=== PATIENT | male | born 1960 | race Two or more races ===

== ENCOUNTER 2017-01-16 02:09 | Emergency (ER) | payer MEDICARE, MEDICAID ==
[~2017-01-16] VITALS: Ht 185.4 cm; Wt 226.8 kg
[2017-01-16 03:01] LABS: Basophils # (auto) 0.1 uL; Basophils % (auto) 1.2 % (0.0-2.0); CONDITION Y; Eosinophils # (auto) 0.3 uL; Eosinophils % (auto) 3.9 % (0.0-7.0); Hematocrit 37.2 % (41.0-53.0); Hemoglobin 12.7 g/dL (13.5-17.5); Lymphocytes # (auto) 1.5 uL; Lymphocytes % (auto) 18.5 % (10.0-50.0); Mean Corpuscular Hemoglobin 30.6 pg (28.0-32.0); Mean Corpuscular Hgb Conc. 34.1 g/dL (32.0-36.0); Mean Corpuscular Volume 89.7 fL (80.0-100.0); Mean Platelet Volume 9.6 fL (7.4-10.4); Monocytes # (auto) 0.9 uL; Monocytes % (auto) 11.7 % (0.0-12.0); Neutrophils # (auto) 5.1 uL; Neutrophils % (auto) 64.7 % (37.0-80.0); Platelet Count (auto) 247 10^3/uL (140-450); Red Cell Distribution Width 14.9 % (11.6-16.0); White Blood Cell 7.9 10^3/uL (4.4-10.8)
[2017-01-16 03:17] LABS: Albumin 2.9 g/dL (3.4-5.0); Anion Gap 9 (5-15); Blood Urea Nitrogen 30 mg/dL (7-18); Carbon Dioxide 21 mmol/L (21-32); Chloride 114 mmol/L (98-107); Glucose 115 mg/dL (74-106); Magnesium 2.1 mg/dL (1.6-2.6); Sodium 144 mmol/L (136-145)
[2017-01-16 03:18] LABS: INR 0.95 (0.9-1.15); Partial Thromboplastin Time 25.2 sec (22.64-33.71); Prothrombin Time 10.3 sec (9.37-12.3)
[2017-01-16 03:19] LABS: Aspartate Aminotransferase 42 U/L (15-37); BUN/Creatinine Ratio 18.3; GFR African American 56 mL/min; GFR Non-African American 46 mL/min
[2017-01-16 03:24] LABS: Alkaline Phosphatase 71 U/L (45-117); B-Type Natriuretic Peptide 114.45 pg/mL (0-100); Bilirubin, Total 0.3 mg/dL (0.2-1.0); Total Protein 6.4 g/dL (6.4-8.2)
[2017-01-16 03:25] LABS: Temperature: 23.3 C (20.0-25.0)
[2017-01-16 07:41] VITALS: BP 168/74
[2017-01-16] MEDS ORDERED: INSUINJ7 SC (07:52)
[2017-01-16] MEDS ORDERED: COLC1CAP (07:52)
[2017-01-16] MEDS ORDERED: SITA100T7 (07:52)
[2017-01-16] MEDS ORDERED: CLOP75TA41 (07:52)
[2017-01-16] MEDS ORDERED: TRAM50TA2 (07:52)
[2017-01-16] MEDS ORDERED: MET25T PO (07:52)
[2017-01-16] MEDS ORDERED: SERT-274 (07:52)
[2017-01-16] MEDS ORDERED: RANI-226 (07:52)
[2017-01-16] MEDS ORDERED: INSLANTI SC (07:52)
[2017-01-16] MEDS ORDERED: SIMV-8 (07:52)
[2017-01-16] MEDS ORDERED: AMLO10TA2 (07:52)
[2017-01-16] MEDS ORDERED: FENO160T8 (07:52)
[2017-01-16] MEDS ORDERED: ASPI81TA10 (07:52)
== END 2017-01-16 13:06 | disposition home or self-care (01) ==
LOC: EDBD 02:09 → ER 02:13
DX: I51.7 Cardiomegaly (principal); E66.01 Morbid (severe) obesity due to excess calories; E46 Unspecified protein-calorie malnutrition; I12.9 Hypertensive chronic kidney disease with stage 1 through stage 4 chronic kidney disease, or unspecified chronic kidney disease; E11.22 Type 2 diabetes mellitus with diabetic chronic kidney disease; N18.3 Chronic kidney disease, stage 3 (moderate); Z68.44 Body mass index [BMI] 60.0-69.9, adult; Z79.899 Other long term (current) drug therapy
CPT/HCPCS: 36415; 71010; 80053; 83735; 83880; 84484; 85025; 85610; 85730; 93005; 93970

== ENCOUNTER 2017-09-19 13:30 | Emergency (ER) | payer OTHER, MEDICAID ==
[~2017-09-19] VITALS: Ht 182.9 cm; Wt 201.8 kg
[~2017-09-19 13:30] MED LIST: AMLO10TA2; ASPI81TA10; CLOP75TA41; COLC1CAP; FENO160T8; INSLANTI SC; INSUINJ7 SC; MET25T PO; RANI-226; SERT-274; SIMV-8; SITA100T7; TRAM50TA2
[2017-09-19 14:10] LABS: Basophils # (auto) 0.1 uL; Basophils % (auto) 1.5 % (0.0-2.0); Eosinophils # (auto) 0.2 uL; Eosinophils % (auto) 3.6 % (0.0-7.0); Hematocrit 37.4 % (41.0-53.0); Hemoglobin 12.6 g/dL (13.5-17.5); Lymphocytes # (auto) 1.5 uL; Lymphocytes % (auto) 23.9 % (10.0-50.0); Mean Corpuscular Hgb Conc. 33.8 g/dL (32.0-36.0); Mean Corpuscular Volume 91.6 fL (80.0-100.0); Monocytes # (auto) 0.8 uL; Monocytes % (auto) 13.3 % (0.0-12.0); Neutrophils # (auto) 3.5 uL; Neutrophils % (auto) 57.7 % (37.0-80.0); Nucleated Red Blood Cells % 0.1 %; Platelet Count (auto) 173 10^3/uL (140-450); Red Blood Cells 4.08 10^6/uL (4.5-5.90); Red Cell Distribution Width 14.5 % (11.8-14.3); White Blood Cell 6.1 10^3/uL (4.4-10.8)
[2017-09-19 14:34] LABS: Alanine Aminotransferase 47 U/L (16-61); Albumin 2.8 g/dL (3.4-5.0); Alkaline Phosphatase 104 U/L (45-117); Anion Gap 6 (5-15); Aspartate Aminotransferase 37 U/L (15-37); BUN/Creatinine Ratio 15.1; Bilirubin, Total 0.2 mg/dL (0.2-1.0); Blood Urea Nitrogen 23 mg/dL (7-18); Calcium 8.3 mg/dL (8.5-10.1); Carbon Dioxide 23 mmol/L (21-32); Chloride 114 mmol/L (98-107); GFR African American 61 mL/min; GFR Non-African American 50 mL/min; Glucose 128 mg/dL (74-106); Potassium 3.9 mmol/L (3.5-5.1); Sodium 143 mmol/L (136-145); Total Protein 6.4 g/dL (6.4-8.2)
[2017-09-19] MEDS ORDERED: NITROGLYCERIN 0.4 MG SL TAB SL ONE (16:45)
[2017-09-19] MEDS ORDERED: ASPirin 325 MG TAB PO ONE (16:45)
[2017-09-19 17:03] VITALS: BP 139/75
== END 2017-09-19 17:30 | disposition home or self-care (01) ==
LOC: ER 13:30 → EDUNIT# 13:30 → EDBD 13:30 → ER 17:30
DX: R07.89 Other chest pain (principal); J45.909 Unspecified asthma, uncomplicated; N18.9 Chronic kidney disease, unspecified; E11.9 Type 2 diabetes mellitus without complications; M10.9 Gout, unspecified; I10 Essential (primary) hypertension; R53.1 Weakness; Z68.44 Body mass index [BMI] 60.0-69.9, adult; E66.01 Morbid (severe) obesity due to excess calories; Z79.4 Long term (current) use of insulin; Z79.899 Other long term (current) drug therapy
CPT/HCPCS: 36415; 80053; 83880; 84484; 85025; 93005

== ENCOUNTER 2018-03-16 19:01 | Inpatient (IN) | payer OTHER, MEDICAID ==
[~2018-03-16] VITALS: Ht 182.9 cm; Wt 193.3 kg
[~2018-03-16 19:01] MED LIST changes: +AMLO10TA12; -AMLO10TA2
[2018-03-16 20:20] LABS: Basophils # (auto) 0.2 uL; Basophils % (auto) 2.8 % (0.0-2.0); Eosinophils # (auto) 0.2 uL; Hematocrit 35.4 % (41.0-53.0); Hemoglobin 12.2 g/dL (13.5-17.5); Lymphocytes # (auto) 1.1 uL; Lymphocytes % (auto) 18.7 % (10.0-50.0); Mean Corpuscular Hemoglobin 31.4 pg (28.0-32.0); Mean Corpuscular Hgb Conc. 34.4 g/dL (32.0-36.0); Mean Corpuscular Volume 91.2 fL (80.0-100.0); Monocytes # (auto) 0.7 uL; Monocytes % (auto) 12.6 % (0.0-12.0); Neutrophils # (auto) 3.6 uL; Neutrophils % (auto) 62.9 % (37.0-80.0); Nucleated Red Blood Cells % 0.1 %; Platelet Count (auto) 183 10^3/uL (140-450); Red Blood Cells 3.88 10^6/uL (4.5-5.90); White Blood Cell 5.6 10^3/uL (4.4-10.8)
[2018-03-16 20:26] LABS: Calcium 8.4 mg/dL (8.5-10.1); Potassium 3.9 mmol/L (3.5-5.1)
[2018-03-16 20:30] LABS: BUN/Creatinine Ratio 16.9; Bilirubin, Total 0.3 mg/dL (0.2-1.0); Total Protein 7.3 g/dL (6.4-8.2)
[2018-03-16] MEDS ORDERED: LEVOFLOXACIN 750MG 150 ML IV ONE (21:00)
[2018-03-16 21:44] LABS: INR 0.9 (0.9-1.15); Partial Thromboplastin Time 25.7 sec (23.78-33.04); Prothrombin Time 9.7 sec (9.27-12.13)
[2018-03-17] MEDS ORDERED: DEXTROSE (50%) 50ML SYRG IV PRN (05:00)
[2018-03-17] MEDS ORDERED: ONDANSETRON HCL 4 MG/2 ML VIAL IV PRN (05:00)
[2018-03-17] MEDS ORDERED: ACETAMINOPHEN 500 MG TAB PO PRN (05:00)
[2018-03-17] MEDS: InsuLIN REG 1unit/0.01ml Soln (100units/ml) SC SCH ×4 (07:29→21:41)
[2018-03-17] MEDS: ACCU-CHEK COMFORT CURVE STRIP VI SCH ×4 (07:30→21:40)
[2018-03-17 07:41] LABS: Basophils # (auto) 0.1 uL; Basophils % (auto) 0.9 % (0.0-2.0); Eosinophils # (auto) 0.2 uL; Eosinophils % (auto) 2.5 % (0.0-7.0); Hematocrit 36.4 % (41.0-53.0); Hemoglobin 12.4 g/dL (13.5-17.5); Lymphocytes # (auto) 1.6 uL; Lymphocytes % (auto) 24.9 % (10.0-50.0); Mean Corpuscular Hemoglobin 31.2 pg (28.0-32.0); Mean Corpuscular Hgb Conc. 33.9 g/dL (32.0-36.0); Mean Corpuscular Volume 91.9 fL (80.0-100.0); Monocytes # (auto) 0.8 uL; Monocytes % (auto) 12.5 % (0.0-12.0); Neutrophils # (auto) 3.9 uL; Neutrophils % (auto) 59.2 % (37.0-80.0); Platelet Count (auto) 183 10^3/uL (140-450); Red Blood Cells 3.96 10^6/uL (4.5-5.90); Red Cell Distribution Width 14.2 % (11.8-14.3); White Blood Cell 6.6 10^3/uL (4.4-10.8)
[2018-03-17 08:03] LABS: BUN/Creatinine Ratio 15.6; Calcium 8.7 mg/dL (8.5-10.1); Potassium 3.9 mmol/L (3.5-5.1)
[2018-03-17 09:40] VITALS: BP 124/62
[2018-03-17] MEDS ORDERED: POTASSIUM CHL 10 Meq TABLET PO SCH (10:00)
[2018-03-17] MEDS ORDERED: CLOPIDOGREL BISULFATE 75 MG TAB PO SCH (10:00)
[2018-03-17] MEDS: ISOSORBIDE MONONITRATE 60 MG TAB PO SCH (11:11)
[2018-03-17] MEDS: METOPROLOL TARTRATE 25 MG TAB PO SCH ×2 (11:12→21:39)
[2018-03-17] MEDS: LISINOPRIL 10 MG TAB PO SCH (11:13)
[2018-03-17] MEDS: ASPirin-EC 81 mg tab PO SCH (11:14)
[2018-03-17] MEDS: amLODIPine BESYLATE 5 MG TAB PO SCH (11:15)
[2018-03-17] MEDS: SERTRALINE HCL 50 MG TAB PO SCH (11:17)
[2018-03-17] MEDS: INSULIN LANTUS (GLARGINE) 1 /0.01ml (100units/ml) SC SCH ×2 (11:22→21:41)
[2018-03-17] MEDS ORDERED: FURO40TA PO (13:40)
[2018-03-17 13:55] VITALS: BP 114/60
[2018-03-17 14:05] VITALS: BP 119/63
[2018-03-17] MEDS ORDERED: cefTRIAXone 1GM/10ml IVPUSH 10 ML IV ONE (16:30)
[2018-03-17 16:35] VITALS: BP 136/60
[2018-03-17] MEDS: CLINDAMYCIN 600MG IV 50 ML IV SCH (21:39)
[2018-03-17] MEDS: HEPARIN SODIUM (PORCINE) 5000 UNITS/ML 1ML VIAL SC SCH (21:44)
[2018-03-17 21:54] VITALS: BP 129/63
[2018-03-18] MEDS ORDERED: VANCOMYCIN PER PHARMACY 0 MG IV SCH (00:15)
[2018-03-18] MEDS ORDERED: VANCOMYCIN 1GM/250ML 250 ML IV ONE ×2 (00:30→01:30)
[2018-03-18 05:18] VITALS: BP 127/64
[2018-03-18] MEDS: CLINDAMYCIN 600MG IV 50 ML IV SCH (06:10)
[2018-03-18] MEDS: ACCU-CHEK COMFORT CURVE STRIP VI SCH ×4 (06:36→21:29)
[2018-03-18] MEDS: InsuLIN REG 1unit/0.01ml Soln (100units/ml) SC SCH ×4 (06:37→21:35)
[2018-03-18 07:00] LABS: Alanine Aminotransferase 29 U/L (16-61); Albumin 2.7 g/dL (3.4-5.0); Alkaline Phosphatase 70 U/L (45-117); Anion Gap 6 (5-15); Aspartate Aminotransferase 24 U/L (15-37); BUN/Creatinine Ratio 17.3; Bilirubin, Total 0.3 mg/dL (0.2-1.0); Blood Urea Nitrogen 38 mg/dL (7-18); Calcium 8.5 mg/dL (8.5-10.1); Carbon Dioxide 23 mmol/L (21-32); Chloride 108 mmol/L (98-107); Cholesterol 176 mg/dL (< 200); GFR African American 40 mL/min; GFR Non-African American 33 mL/min; Glucose 261 mg/dL (74-106); HDL Cholesterol 25 mg/dL (40-59); Magnesium 2.2 mg/dL (1.6-2.6); Potassium 4.1 mmol/L (3.5-5.1); Sodium 137 mmol/L (136-145); Total Protein 6.6 g/dL (6.4-8.2); Triglycerides 412 mg/dL (< 150)
[2018-03-18 08:00] VITALS: BP 101/61
[2018-03-18 09:34] VITALS: BP 101/61
[2018-03-18] MEDS: cefTRIAXone 1GM/10ml IVPUSH 10 ML IV SCH (09:37)
[2018-03-18] MEDS: PANTOPRAZOLE 40 MG TAB PO SCH (09:37)
[2018-03-18] MEDS: ISOSORBIDE MONONITRATE 60 MG TAB PO SCH (09:38)
[2018-03-18] MEDS: amLODIPine BESYLATE 5 MG TAB PO SCH (09:38)
[2018-03-18] MEDS: METOPROLOL TARTRATE 25 MG TAB PO SCH ×2 (09:39→21:27)
[2018-03-18] MEDS: LISINOPRIL 10 MG TAB PO SCH (09:39)
[2018-03-18] MEDS: SERTRALINE HCL 50 MG TAB PO SCH (09:39)
[2018-03-18] MEDS: ASPirin-EC 81 mg tab PO SCH (09:39)
[2018-03-18] MEDS: INSULIN LANTUS (GLARGINE) 1 /0.01ml (100units/ml) SC SCH ×2 (09:43→21:36)
[2018-03-18] MEDS: HEPARIN SODIUM (PORCINE) 5000 UNITS/ML 1ML VIAL SC SCH ×2 (09:55→21:33)
[2018-03-18] MEDS ORDERED: ENOXAPARIN SOD 30 MG/0.3 ML SYRINGE SC SCH (10:00)
[2018-03-18 11:35] VITALS: BP 101/58
[2018-03-18] MEDS: HYDROcodone-ACET 5/325MG TAB PO PRN ×2 (11:49→18:07)
[2018-03-18] MEDS: VANCOMYCIN 1GM/250ML 250 ML IV SCH (14:53)
[2018-03-18 16:45] VITALS: BP 112/46
[2018-03-18] MEDS: ASCORBIC ACID 500 MG TAB PO SCH (21:27)
[2018-03-18 22:26] VITALS: BP 124/66
[2018-03-19] MEDS: VANCOMYCIN 1GM/250ML 250 ML IV SCH (02:05)
[2018-03-19 05:15] VITALS: BP 129/63
[2018-03-19 05:22] LABS: Basophils # (auto) 0.1 uL; Basophils % (auto) 2.1 % (0.0-2.0); Eosinophils # (auto) 0.2 uL; Eosinophils % (auto) 3.6 % (0.0-7.0); Hematocrit 34.6 % (41.0-53.0); Hemoglobin 11.7 g/dL (13.5-17.5); Lymphocytes # (auto) 1.2 uL; Mean Corpuscular Hemoglobin 31.3 pg (28.0-32.0); Mean Corpuscular Hgb Conc. 33.9 g/dL (32.0-36.0); Mean Corpuscular Volume 92.2 fL (80.0-100.0); Monocytes # (auto) 0.7 uL; Monocytes % (auto) 14.6 % (0.0-12.0); Neutrophils # (auto) 2.9 uL; Neutrophils % (auto) 56.7 % (37.0-80.0); Nucleated Red Blood Cells % 0.1 %; Platelet Count (auto) 174 10^3/uL (140-450); Red Blood Cells 3.75 10^6/uL (4.5-5.90); Red Cell Distribution Width 14.3 % (11.8-14.3); White Blood Cell 5.1 10^3/uL (4.4-10.8)
[2018-03-19 05:41] LABS: Albumin 2.5 g/dL (3.4-5.0); BUN/Creatinine Ratio 15.3; Calcium 8.1 mg/dL (8.5-10.1)
[2018-03-19 05:54] LABS: Bilirubin, Total 0.5 mg/dL (0.2-1.0); Total Protein 6.5 g/dL (6.4-8.2)
[2018-03-19] MEDS: InsuLIN REG 1unit/0.01ml Soln (100units/ml) SC SCH ×4 (06:30→22:21)
[2018-03-19] MEDS: ACCU-CHEK COMFORT CURVE STRIP VI SCH ×4 (06:30→22:21)
[2018-03-19 09:00] VITALS: BP 120/54
[2018-03-19] MEDS ORDERED: HEPARIN SODIUM (PORCINE) 5000 UNITS/ML 1ML VIAL ONE (09:09)
[2018-03-19] MEDS: PANTOPRAZOLE 40 MG TAB PO SCH (09:38)
[2018-03-19] MEDS: SERTRALINE HCL 50 MG TAB PO SCH (09:39)
[2018-03-19] MEDS: ASCORBIC ACID 500 MG TAB PO SCH ×2 (09:39→22:10)
[2018-03-19] MEDS: amLODIPine BESYLATE 5 MG TAB PO SCH (09:39)
[2018-03-19] MEDS: ISOSORBIDE MONONITRATE 60 MG TAB PO SCH (09:40)
[2018-03-19] MEDS: LISINOPRIL 10 MG TAB PO SCH (09:40)
[2018-03-19] MEDS: ASPirin-EC 81 mg tab PO SCH (09:41)
[2018-03-19] MEDS: METOPROLOL TARTRATE 25 MG TAB PO SCH ×2 (09:41→22:10)
[2018-03-19] MEDS: MULTIPLE VITAMIN TAB PO SCH (09:41)
[2018-03-19] MEDS: cefTRIAXone 1GM/10ml IVPUSH 10 ML IV SCH (09:41)
[2018-03-19] MEDS: HEPARIN SODIUM (PORCINE) 5000 UNITS/ML 1ML VIAL SC SCH ×4 (09:43→22:21)
[2018-03-19] MEDS: INSULIN LANTUS (GLARGINE) 1 /0.01ml (100units/ml) SC SCH ×2 (10:00→22:21)
[2018-03-19 13:00] VITALS: BP_SYST 111; BP_SYST 98; BP_DIAS 37; BP_DIAS 42
[2018-03-19 17:00] VITALS: BP 95/52
[2018-03-19 22:00] VITALS: BP 140/64
[2018-03-20 05:00] VITALS: BP 124/70
[2018-03-20] MEDS: HYDROcodone-ACET 5/325MG TAB PO PRN (05:04)
[2018-03-20] MEDS: ACCU-CHEK COMFORT CURVE STRIP VI SCH ×3 (06:17→17:00)
[2018-03-20] MEDS: InsuLIN REG 1unit/0.01ml Soln (100units/ml) SC SCH ×3 (06:17→17:00)
[2018-03-20 06:31] LABS: Potassium 4.5 mmol/L (3.5-5.1)
[2018-03-20 06:42] LABS: BUN/Creatinine Ratio 15.1; Calcium 8.7 mg/dL (8.5-10.1)
[2018-03-20 08:07] VITALS: BP 140/65
[2018-03-20] MEDS: HEPARIN SODIUM (PORCINE) 5000 UNITS/ML 1ML VIAL SC SCH ×2 (10:00→10:08)
[2018-03-20] MEDS: cefTRIAXone 1GM/10ml IVPUSH 10 ML IV SCH (10:02)
[2018-03-20] MEDS: amLODIPine BESYLATE 5 MG TAB PO SCH (10:04)
[2018-03-20] MEDS: PANTOPRAZOLE 40 MG TAB PO SCH (10:04)
[2018-03-20] MEDS: ASPirin-EC 81 mg tab PO SCH (10:04)
[2018-03-20] MEDS: ASCORBIC ACID 500 MG TAB PO SCH (10:04)
[2018-03-20] MEDS: SERTRALINE HCL 50 MG TAB PO SCH (10:04)
[2018-03-20] MEDS: METOPROLOL TARTRATE 25 MG TAB PO SCH (10:05)
[2018-03-20] MEDS: LISINOPRIL 10 MG TAB PO SCH (10:05)
[2018-03-20] MEDS: MULTIPLE VITAMIN TAB PO SCH (10:05)
[2018-03-20] MEDS: INSULIN LANTUS (GLARGINE) 1 /0.01ml (100units/ml) SC SCH (10:06)
[2018-03-20] MEDS: ISOSORBIDE MONONITRATE 60 MG TAB PO SCH (10:06)
[2018-03-20 13:00] VITALS: BP 130/80
[2018-03-20] MEDS ORDERED: CLIN1CAP4 PO (13:42)
[2018-03-20] MEDS ORDERED: LEVO500T21 PO (13:42)
[2018-03-20] MEDS ORDERED: SACC250C PO (13:42)
[2018-03-20 17:00] VITALS: BP 116/69
== END 2018-03-20 18:45 | disposition home health service (06) | DRG 623 ==
LOC: EDBD 19:01 → ER 19:01 → OVERFLOW 19:02 → WEST WING 03-17 09:00
PROVIDERS: ADMIT Nurse Practitioner Family; ATTEND Internal Medicine
PROC: 0JBR0ZZ Excision of Left Foot Subcutaneous Tissue and Fascia, Open Approach (ICD-10-PCS; principal; 2018-03-18)
PROC: 0HBRXZZ Excision of Toe Nail, External Approach (ICD-10-PCS; 2018-03-18)
PROC: 0HBRXZZ Excision of Toe Nail, External Approach (ICD-10-PCS; 2018-03-18)
PROC: 0HBRXZZ Excision of Toe Nail, External Approach (ICD-10-PCS; 2018-03-18)
PROC: 0HBRXZZ Excision of Toe Nail, External Approach (ICD-10-PCS; 2018-03-18)
PROC: 0HBRXZZ Excision of Toe Nail, External Approach (ICD-10-PCS; 2018-03-18)
PROC: 0HBRXZZ Excision of Toe Nail, External Approach (ICD-10-PCS; 2018-03-18)
PROC: 0HBRXZZ Excision of Toe Nail, External Approach (ICD-10-PCS; 2018-03-18)
PROC: 0HBRXZZ Excision of Toe Nail, External Approach (ICD-10-PCS; 2018-03-18)
PROC: 0HBRXZZ Excision of Toe Nail, External Approach (ICD-10-PCS; 2018-03-18)
PROC: 0HBRXZZ Excision of Toe Nail, External Approach (ICD-10-PCS; 2018-03-18)
DX: E11.621 Type 2 diabetes mellitus with foot ulcer (principal); L03.116 Cellulitis of left lower limb; L02.612 Cutaneous abscess of left foot; I13.0 Hypertensive heart and chronic kidney disease with heart failure and stage 1 through stage 4 chronic kidney disease, or unspecified chronic kidney disease; Z68.43 Body mass index [BMI] 50.0-59.9, adult; E11.21 Type 2 diabetes mellitus with diabetic nephropathy; E11.22 Type 2 diabetes mellitus with diabetic chronic kidney disease; E66.01 Morbid (severe) obesity due to excess calories; L97.529 Non-pressure chronic ulcer of other part of left foot with unspecified severity; B35.1 Tinea unguium; E11.51 Type 2 diabetes mellitus with diabetic peripheral angiopathy without gangrene; I70.202 Unspecified atherosclerosis of native arteries of extremities, left leg; N18.3 Chronic kidney disease, stage 3 (moderate); M19.072 Primary osteoarthritis, left ankle and foot; D64.9 Anemia, unspecified; E11.42 Type 2 diabetes mellitus with diabetic polyneuropathy; E78.5 Hyperlipidemia, unspecified; F32.9 Major depressive disorder, single episode, unspecified; F41.9 Anxiety disorder, unspecified; I25.10 Atherosclerotic heart disease of native coronary artery without angina pectoris; I48.91 Unspecified atrial fibrillation; B95.61 Methicillin susceptible Staphylococcus aureus infection as the cause of diseases classified elsewhere; I12.9 Hypertensive chronic kidney disease with stage 1 through stage 4 chronic kidney disease, or unspecified chronic kidney disease; L84 Corns and callosities; M10.9 Gout, unspecified; J45.909 Unspecified asthma, uncomplicated; Z79.4 Long term (current) use of insulin; Z80.0 Family history of malignant neoplasm of digestive organs; Z82.49 Family history of ischemic heart disease and other diseases of the circulatory system; Z83.3 Family history of diabetes mellitus
CPT/HCPCS: 36415; 73700; 80048; 80053; 80061; 82962; 83036; 83605; 83735; 85025; 85610; 85730; 87040; 87077; 87186; 87205; 93926; 96365; 96366; 96375; J0696; J1815; J1956; J3490

== ENCOUNTER 2019-04-05 15:19 | Inpatient (IN) | payer OTHER, MEDICAID ==
[~2019-04-05] VITALS: Ht 182.9 cm; Wt 139.3 kg
[~2019-04-05 15:19] MED LIST changes: -AMLO10TA12; +AMLO10TA13; +CLIN300C8 PO; +FURO1TAB31 PO; +LEVO500T21 PO; +SACC250C PO
[2019-04-05] MEDS ORDERED: InsuLIN R (HUMAN) 100 UNITS in SODIUM CHL 0.9% 99 ML IV SCH (16:08)
[2019-04-05] MEDS ORDERED: DEXTROSE (50%) 50ML SYRG IV PRN (16:15)
[2019-04-05 16:18] LABS: Basophils # (auto) 0.1 uL; Basophils % (auto) 0.6 % (0.0-2.0); Eosinophils # (auto) 0 uL; Hematocrit 43.1 % (41.0-53.0); Hemoglobin 13.7 g/dL (13.5-17.5); Lymphocytes # (auto) 0.8 uL; Lymphocytes % (auto) 9.5 % (10.0-50.0); Mean Corpuscular Hemoglobin 29.9 pg (28.0-32.0); Mean Corpuscular Hgb Conc. 31.7 g/dL (32.0-36.0); Mean Corpuscular Volume 94.1 fL (80.0-100.0); Monocytes # (auto) 0.7 uL; Monocytes % (auto) 7.5 % (0.0-12.0); Neutrophils # (auto) 7.2 uL; Neutrophils % (auto) 82.4 % (37.0-80.0); Platelet Count (auto) 253 10^3/uL (140-450); Red Blood Cells 4.58 10^6/uL (4.5-5.90); Red Cell Distribution Width 14.9 % (11.8-14.3); White Blood Cell 8.8 10^3/uL (4.4-10.8)
[2019-04-05] MEDS: SODIUM CHLORIDE 0.9% 1,000 ML IV SCH ×3 (16:18→21:10)
[2019-04-05] MEDS: ACCU-CHEK COMFORT CURVE STRIP VI SCH ×5 (16:30→22:30)
[2019-04-05 16:36] LABS: BUN/Creatinine Ratio 21.1; Calcium 8.7 mg/dL (8.5-10.1); Potassium 4.9 mmol/L (3.5-5.1)
[2019-04-05] MEDS ORDERED: InsuLIN REG 1unit/0.01ml Soln (100units/ml) IV ONE (18:30)
[2019-04-05] MEDS ORDERED: NITROGLYCERIN 0.4 MG SL TAB SL PRN (18:30)
[2019-04-05] MEDS ORDERED: MORPHINE SULF INJ 2 MG/ML SYRINGE 1ML IV PRN (18:30)
[2019-04-05] MEDS ORDERED: SODIUM CHLORIDE 0.9% 1,000 ML IV SCH (20:08)
[2019-04-05] MEDS ORDERED: SUCRALFATE 1 GM/10 ML ORAL SUSP PO ONE (20:15)
[2019-04-05] MEDS: FAMOTIDINE (10MG/ML) 2ML VL IV SCH (21:00)
[2019-04-05] MEDS: METOPROLOL TARTRATE 25 MG TAB PO SCH (21:34)
[2019-04-05 23:30] LABS: BUN/Creatinine Ratio 21.1; Calcium 8.5 mg/dL (8.5-10.1); Potassium 3.9 mmol/L (3.5-5.1)
[2019-04-06] MEDS: ACCU-CHEK COMFORT CURVE STRIP VI SCH ×9 (00:01→19:43)
[2019-04-06] MEDS: METOPROLOL TARTRATE 25 MG TAB PO SCH ×2 (03:54→09:45)
[2019-04-06] MEDS ORDERED: ONDANSETRON HCL 4 MG/2 ML VIAL ONE (04:43)
[2019-04-06] MEDS: SODIUM CHLORIDE 0.9% 1,000 ML IV SCH ×3 (04:48→19:45)
[2019-04-06 06:00] LABS: Basophils # (auto) 0.1 uL; Basophils % (auto) 1.2 % (0.0-2.0); Eosinophils # (auto) 0 uL; Eosinophils % (auto) 0.3 % (0.0-7.0); Hematocrit 40.5 % (41.0-53.0); Hemoglobin 13.6 g/dL (13.5-17.5); Lymphocytes # (auto) 1.7 uL; Lymphocytes % (auto) 20.6 % (10.0-50.0); Mean Corpuscular Hemoglobin 30.4 pg (28.0-32.0); Mean Corpuscular Hgb Conc. 33.5 g/dL (32.0-36.0); Mean Corpuscular Volume 90.8 fL (80.0-100.0); Monocytes # (auto) 0.7 uL; Monocytes % (auto) 8.2 % (0.0-12.0); Neutrophils # (auto) 5.6 uL; Neutrophils % (auto) 69.7 % (37.0-80.0); Platelet Count (auto) 260 10^3/uL (140-450); Red Blood Cells 4.46 10^6/uL (4.5-5.90); Red Cell Distribution Width 14.2 % (11.8-14.3)
[2019-04-06] MEDS ORDERED: ONDANSETRON HCL 4 MG/2 ML VIAL IV ONE (06:15)
[2019-04-06 06:40] LABS: Calcium 8.3 mg/dL (8.5-10.1); Magnesium 2.6 mg/dL (1.6-2.6); Phosphorus 2.3 mg/dL (2.5-4.90)
[2019-04-06] MEDS ORDERED: DEXTROSE (50%) 50ML SYRG IV PRN (07:30)
[2019-04-06] MEDS: InsuLIN REG 1unit/0.01ml Soln (100units/ml) SC SCH ×4 (08:59→19:44)
[2019-04-06 09:00] VITALS: BP 139/77
--- NOTE | 2019-04-06 09:10 | NUR ---
Pt Arrival On Unit Pt arrived on unit via wheelchair. Able to ambulate to bed without difficulty. Pt is a/ox4 with no s/s of distress or SOB. Pt in room air and sitting on edge of bed eating breakfast. Pt has no complaints at this time. Safety measures maintained with call light within reach, bed in lowest position and side rails up. Will continue to monitor for changes q1hr and prn.
[2019-04-06] MEDS: FAMOTIDINE (10MG/ML) 2ML VL IV SCH ×2 (09:44→22:08)
[2019-04-06] MEDS: CLOPIDOGREL BISULFATE 75 MG TAB PO SCH (09:45)
[2019-04-06] MEDS: ASPirin-EC 81 mg tab PO SCH (09:45)
[2019-04-06 10:16] LABS: Calcium 8.8 mg/dL (8.5-10.1); Potassium 4.2 mmol/L (3.5-5.1)
[2019-04-06 10:18] LABS: BUN/Creatinine Ratio 18.9
--- NOTE | 2019-04-06 10:37 | NUR ---
Blood Culture Test Positive Radha mai Sherrill called to inform me that pt's blood culture tested positive for aerobic gram variable rods. Spoke with Dr Daigle and informed her of the finding. Will continue to monitor.
--- NOTE | 2019-04-06 11:34 | NUR ---
UA Sent To Lab
[2019-04-06] MEDS ORDERED: INSULIN LANTUS (GLARGINE) 1 /0.01ml (100units/ml) SC ONE (11:45)
[2019-04-06] MEDS ORDERED: cefTRIAXone 1GM/50ML D5W 50 ML IV ONE (11:45)
[2019-04-06 12:01] LABS: Urine Bacteria FEW /hpf (None Seen); Urine Blood TRACE /uL (Negative); Urine Hyaline Cast FEW /lpf (0 - 2); Urine Specific Gravity 1.014 (1.001-1.035); Urine WBC 11 /hpf (0 - 3)
[2019-04-06 12:12] LABS: Amphetamine Screen, Urine NEGATIVE (NEGATIVE); Barbiturate Scree,Urine NEGATIVE (NEGATIVE); Benzodiazephine Screen, Urine NEGATIVE (NEGATIVE); Cannabinoid Screen, Urine NEGATIVE (NEGATIVE); Cocaine Screen, Urine NEGATIVE (NEGATIVE); Opiate Scree,Urine NEGATIVE (NEGATIVE); Phencyclidine Screen, Urine NEGATIVE (NEGATIVE)
--- NOTE | 2019-04-06 12:15 | NUR ---
Daughter Called for Update Daughter Linnette called for an update in her father. Daughter stated that the pt has been experiencing polyuria as well as slow speech, decreased appetite, suspicion in lack of DM management, as well as a change in mood in that he has not had a desire to leave the house since a recent loss in the family. Reassured daughter that we are taking care of pt and monitoring his needs medically. Daughter requested possible assistance in taking care of pt. Daughter left number for any further questions any staff may have. Linnette [phone]
[2019-04-06 12:18] LABS: Alcohol, Urine < 3.0 mg/dL (0-5)
[2019-04-06 13:00] VITALS: BP 127/67
[2019-04-06 17:07] VITALS: BP 128/77
--- NOTE | 2019-04-06 19:10 | NUR ---
OPENING SHIFT NOTE Assumed care of patient who is A&Ox3. Currently on RA with no s/s of distress. Denies pain at this time. It is noted that patient has experienced an episode of incontinence. Full linen change performed. Pericare provided and barrier cream applied to redness in bilateral groin and scrotum. Patient tolerates well. Bed left in low locked position with side rails up x2. Call light is within reach and patient encouraged to call for assistance when needed. Will continue to monitor for changes PRN.
--- NOTE | 2019-04-06 20:24 | NUR ---
Son called for update After verification of password, updated Son on patients current condition and POC. All questions answered.
[2019-04-06 22:00] VITALS: BP 144/87
[2019-04-06] MEDS ORDERED: INSULIN LANTUS (GLARGINE) 1 /0.01ml (100units/ml) SC SCH (22:00)
[2019-04-07] MEDS: ACCU-CHEK COMFORT CURVE STRIP VI SCH ×6 (00:24→22:02)
[2019-04-07] MEDS: InsuLIN REG 1unit/0.01ml Soln (100units/ml) SC SCH ×6 (00:28→22:15)
--- NOTE | 2019-04-07 03:28 | NUR ---
Visualized Patients heart rate increase into the 130s on monitor. Assessed patient who is currently sitting on the edge of the bed. Placed on bedside O2 at 2 L via NC. Assisted back into bed. Denies chest pain or SOB. EKG performed, which shows SR with right access deviation. BP: 151/93, heart rate 118, spo2 98% Will continue to monitor for changes
--- NOTE | 2019-04-07 04:50 | NUR ---
Linens and gown changed due to episode of incontinence. Patient educated on use of the urinal. Patient is able to successfully repeat demonstration.
[2019-04-07 05:00] VITALS: BP 144/79
[2019-04-07 07:56] LABS: Albumin 2.4 g/dL (3.4-5.0); Calcium 8.6 mg/dL (8.5-10.1); Magnesium 2.2 mg/dL (1.6-2.6); Potassium 3.5 mmol/L (3.5-5.1)
[2019-04-07 08:01] LABS: BUN/Creatinine Ratio 16.3; Bilirubin, Total 0.4 mg/dL (0.2-1.0); Total Protein 6.8 g/dL (6.4-8.2)
[2019-04-07] MEDS: SODIUM CHLORIDE 0.9% 1,000 ML IV SCH ×2 (08:48→12:30)
[2019-04-07 09:00] VITALS: BP 156/83
[2019-04-07] MEDS: cefTRIAXone 1GM/50ML D5W 50 ML IV SCH (09:08)
--- NOTE | 2019-04-07 09:48 | NUR ---
Lab Result Received lab result blood culture positive for Gram + cocci from [facility] in Microbiology, awaiting sensitivity results. Notified Dr. Schulte.
[2019-04-07] MEDS ORDERED: amLODIPine BESYLATE 5 MG TAB PO SCH (10:00)
[2019-04-07] MEDS: METOPROLOL TARTRATE 25 MG TAB PO SCH ×2 (10:38→20:52)
[2019-04-07] MEDS: ASPirin-EC 81 mg tab PO SCH (10:38)
[2019-04-07] MEDS: FAMOTIDINE (10MG/ML) 2ML VL IV SCH ×2 (10:39→22:14)
[2019-04-07] MEDS: CLOPIDOGREL BISULFATE 75 MG TAB PO SCH (10:39)
--- NOTE | 2019-04-07 11:10 | NUR ---
IV insertion IV access obtained, via clean sterile technique by inserting 20 gauge catheter at RIGHT FOREARM after 1 attempt(s). IV secured properly. No trauma to site. Patient tolerated well. NOTE: IV removal PREVIOUS IV DC'd with clean sterile technique, catheter fully intact. Pressure dressing applied to site. Patient tolerated well. NOTE:
[2019-04-07] MEDS ORDERED: amLODIPine BESYLATE 5 MG TAB PO ONE (12:30)
[2019-04-07] MEDS ORDERED: DEXTROSE (50%) 50ML SYRG IV PRN (12:30)
[2019-04-07] MEDS ORDERED: POTASSIUM CHL 20 Meq TABLET PO ONE (12:30)
[2019-04-07 13:00] VITALS: BP 119/66
--- NOTE | 2019-04-07 13:23 | NUR ---
Called/paged Dr. MEDINA called re:PT'S TELE READING THIS MORNING OF SINUS ARRYTHMIA PAC'S (TRIGEMINY) TELE STRIP IN THE CHART . Waiting for call back. Continue care.
--- NOTE | 2019-04-07 14:18 | NUR ---
returned call Dr. MEDINA returned call, updated on patient status and reason for call, orders received. Continue care.
--- NOTE | 2019-04-07 16:17 | NUR ---
D/C Planning Per consult for home health safety evaluation, PT medication management and vitals. [place] [facility] [place]:) Fax: ) faxed medical records. Ortiz Mitchell from [facility] [place] Pt has been accepted and service to start within 48hrs upon d/c day. Contacted [facility] Ph:) Fax:) faxed medical records. Ortiz Villalta from [facility] authorization for home health is [id number]. Advised Pt at bedside regarding home health accepting. Pt verbalize understanding. Addendum: 04/07/19 at 1623 by LITTLE FINN Amended: Links added.
[2019-04-07 17:00] VITALS: BP 148/90
--- NOTE | 2019-04-07 17:54 | NUR ---
AMBULATION PT REFUSED TO AMBULATE WITH THE PHYSICAL THERAPIST TODAY. I SPOKE TO PATIENT AND ENCOURAGED HIM TO DO SO TOMORROW SO THAT P.T. CAN MAKE A RECOMMENDATION FOR HIM WHEN HE GETS DISCHARGED. PT VERBALIZED AGREEMENT AND STATED HE'S GOING TO NEED A HEAVY DUTY WALKER FOR HOME.
[2019-04-07 22:00] VITALS: BP 161/87
[2019-04-07] MEDS: INSULIN LANTUS (GLARGINE) 1 /0.01ml (100units/ml) SC SCH (22:14)
[2019-04-08] MEDS: SODIUM CHLORIDE 0.9% 1,000 ML IV SCH ×2 (01:13→21:50)
[2019-04-08 05:30] VITALS: BP 126/79
[2019-04-08] MEDS: ACCU-CHEK COMFORT CURVE STRIP VI SCH ×4 (06:34→21:22)
[2019-04-08] MEDS: InsuLIN REG 1unit/0.01ml Soln (100units/ml) SC SCH ×4 (06:41→21:22)
[2019-04-08] MEDS: INSULIN LANTUS (GLARGINE) 1 /0.01ml (100units/ml) SC SCH ×2 (06:41→21:38)
[2019-04-08 07:14] LABS: BUN/Creatinine Ratio 13.9; Calcium 9.2 mg/dL (8.5-10.1); Potassium 3.5 mmol/L (3.5-5.1)
--- NOTE | 2019-04-08 08:00 | NUR ---
AWAKE ALERT ORIENTED TO SELF AND PLACE. VERY SLOW TO ANSWER QUESTIONS ALSO HAS A DIFFICULT TIME TELLING ME WHAT HE WANTS. PORTER BAGGAGE AT BEDSIDE.
[2019-04-08] MEDS: cefTRIAXone 1GM/50ML D5W 50 ML IV SCH (09:16)
[2019-04-08] MEDS: CLOPIDOGREL BISULFATE 75 MG TAB PO SCH (09:29)
[2019-04-08] MEDS: FAMOTIDINE (10MG/ML) 2ML VL IV SCH ×2 (09:29→21:36)
[2019-04-08] MEDS: ASPirin-EC 81 mg tab PO SCH (09:29)
[2019-04-08] MEDS ORDERED: SERTRALINE HCL 50 MG TAB PO ONE (11:15)
[2019-04-08] MEDS: METOPROLOL TARTRATE 25 MG TAB PO SCH ×2 (12:18→21:37)
[2019-04-08] MEDS: amLODIPine BESYLATE 5 MG TAB PO SCH (12:18)
[2019-04-08 13:00] VITALS: BP 153/78
--- NOTE | 2019-04-08 13:24 | NUR ---
assessment Patient is a 58 year old male who is alert and oriented. Prior to admission patient lived home with family and functioned with assistance. Patient informed me he has a [facility] caregiver. Patient informed me his PCP is Dr Waters. I informed patient of consult that he needs help medically per his daughter. Patient informed me that he has a caregiver and that he could use home health on discharge. Patient may benefit from home health for safety and medication management. Per patient he will return home to his prior living arrangements post discharge and family will transport him home. I informed patient he has a right to speak to a group social worker regarding all care. I informed patient he has a right to participate in any and all discharge planning. Patient does not have a POA and advanced directive. I have offered patient information on POA and advanced directives. I informed the patient the advantages and benefits of having an Advanced Directive. Patient verbalized understanding and agreed to discharge plan. Addendum: 04/08/19 at 1328 by Symone Ramirez Amended: Links added.
--- NOTE | 2019-04-08 16:43 | NUR ---
PT REFUSED PHYSICAL THERAPY TODAY. REBECCA DAILEY WAS NOTIFIED. Addendum: 04/08/19 at 1644 by HARVEY HERRERA PTT Amended: Links added.
[2019-04-08 17:00] VITALS: BP 144/65
--- NOTE | 2019-04-08 17:13 | NUR ---
D/C Planning Per SS consult for FWW and Shower Chair. Contacted [facility] Ph:) Fax:) faxed medical records. Per Ambar from [facility] insurance Pt received equipment a year ago and Pt only qualifies for new FWW and Shower Chair every 5 years. Informed REBECCA Cordova.
--- NOTE | 2019-04-08 19:15 | NUR ---
Opening Shift Note Assumed care of patient, awake and alert. No S/S of distress/SOB or pain. Instructed on POC and to call for assistance as needed. Bed is locked in lowest position with side rails up x2 for safety. Will continue to monitor for changes Q1hr and PRN.
[2019-04-08 22:00] VITALS: BP 106/87
[2019-04-09 05:00] VITALS: BP 146/91
[2019-04-09 05:48] LABS: Calcium 8.4 mg/dL (8.5-10.1); Potassium 3.3 mmol/L (3.5-5.1)
[2019-04-09 05:50] LABS: BUN/Creatinine Ratio 12.5
[2019-04-09] MEDS: ACCU-CHEK COMFORT CURVE STRIP VI SCH ×3 (06:28→16:56)
[2019-04-09] MEDS: INSULIN LANTUS (GLARGINE) 1 /0.01ml (100units/ml) SC SCH (06:28)
[2019-04-09] MEDS: InsuLIN REG 1unit/0.01ml Soln (100units/ml) SC SCH ×3 (06:28→16:56)
[2019-04-09 09:00] VITALS: BP 91/63
--- NOTE | 2019-04-09 09:00 | NUR ---
PATIENT OBSERVED SQUINTING. PATIENT STATES HE IS UNABLE TO SEE OUT OF LEFT EYE THAT IT IS A CHRONIC CONDITION. 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 I FORGET TO TELL PEOPLE."
[2019-04-09] MEDS ORDERED: SERTRALINE HCL 50 MG TAB PO SCH (10:00)
[2019-04-09] MEDS ORDERED: POTASSIUM CHL 20 Meq TABLET PO ONE ×2 (10:30→14:00)
[2019-04-09] MEDS: cefTRIAXone 1GM/50ML D5W 50 ML IV SCH (10:30)
[2019-04-09] MEDS: ASPirin-EC 81 mg tab PO SCH (10:30)
[2019-04-09] MEDS: FAMOTIDINE (10MG/ML) 2ML VL IV SCH (10:30)
[2019-04-09] MEDS: CLOPIDOGREL BISULFATE 75 MG TAB PO SCH (10:31)
[2019-04-09] MEDS: METOPROLOL TARTRATE 25 MG TAB PO SCH (10:31)
[2019-04-09] MEDS: amLODIPine BESYLATE 5 MG TAB PO SCH (10:33)
[2019-04-09] MEDS ORDERED: DOXY-216 PO (10:42)
[2019-04-09] MEDS ORDERED: SACC250C PO (10:42)
--- NOTE | 2019-04-09 11:15 | NUR ---
DISCHARGE ORDER PLACED BY DR MEDINA PENDING HOME HEALTH AND DR HIGUERA'S OKAY TO BE DISCHARGED
--- NOTE | 2019-04-09 11:43 | NUR ---
CONTACTED [facility] REGARDING HOME HEALTH FOR PATIENT DISCHARGE. LEFT A MESSAGE. WILL AWAIT CALL BACK .
--- NOTE | 2019-04-09 12:11 | NUR ---
CONTACTED DR HIGUERA. LEFT A MESSAGE FOR M.D. STATING PATIENT IS D/C'D PENDING M.D. CLEARANCE TO GO HOME. WILL AWAIT MD CALL BACK
[2019-04-09 13:00] VITALS: BP 185/110
--- NOTE | 2019-04-09 15:00 | NUR ---
Discharge update: Patient signed all discharge paperwork and discharge paperwork explained. Patient understood teaching. IV 20 g in right forearm removed and tele box sent back to monitoring room. Patient states his transportation with arrive at 11/20.
[2019-04-09 17:26] VITALS: BP 130/68
--- NOTE | 2019-04-09 20:15 | NUR ---
Discharge Note: Patient discharged home by chico Nunez. Patient discharged by wheelchair.
== END 2019-04-09 20:15 | disposition home health service (06) | DRG 871 ==
LOC: EDBD 15:19 → ER 15:22 → TELE 15:23 → TELE-CENTR 04-06 09:45
PROVIDERS: ADMIT Nurse Practitioner Acute Care; ATTEND Internal Medicine
DX: A41.9 Sepsis, unspecified organism (principal); E11.11 Type 2 diabetes mellitus with ketoacidosis with coma; N17.0 Acute kidney failure with tubular necrosis; Z68.41 Body mass index [BMI] 40.0-44.9, adult; I12.9 Hypertensive chronic kidney disease with stage 1 through stage 4 chronic kidney disease, or unspecified chronic kidney disease; D64.9 Anemia, unspecified; E66.01 Morbid (severe) obesity due to excess calories; E78.5 Hyperlipidemia, unspecified; E87.6 Hypokalemia; F32.9 Major depressive disorder, single episode, unspecified; E11.51 Type 2 diabetes mellitus with diabetic peripheral angiopathy without gangrene; E11.22 Type 2 diabetes mellitus with diabetic chronic kidney disease; E11.621 Type 2 diabetes mellitus with foot ulcer; J45.909 Unspecified asthma, uncomplicated; L97.509 Non-pressure chronic ulcer of other part of unspecified foot with unspecified severity; M10.9 Gout, unspecified; I49.9 Cardiac arrhythmia, unspecified; N18.9 Chronic kidney disease, unspecified; Z79.02 Long term (current) use of antithrombotics/antiplatelets; Z79.4 Long term (current) use of insulin; Z79.899 Other long term (current) drug therapy; Z80.0 Family history of malignant neoplasm of digestive organs; Z82.49 Family history of ischemic heart disease and other diseases of the circulatory system; Z83.3 Family history of diabetes mellitus
CPT/HCPCS: 36415; 36600; 71045; 80048; 80053; 80061; 80307; 81001; 82010; 82805; 82962; 83036; 83605; 83735; 84100; 85025; 87040; 87077; 87086; 87186; 93005; 93306; 93926; 97110; 97116; 97530; 99291; G0378; J0696; J1815; J2405; J3490

== ENCOUNTER 2019-04-18 10:50 | Inpatient (IN) | payer OTHER, MEDICAID ==
[~2019-04-18] VITALS: Ht 182.9 cm; Wt 141.6 kg
[~2019-04-18 10:50] MED LIST changes: -CLIN300C8 PO; +DOXY-216 PO; -LEVO500T21 PO
[2019-04-18 11:38] LABS: Basophils # (auto) 0.1 uL; Basophils % (auto) 0.9 % (0.0-2.0); Eosinophils # (auto) 0.1 uL; Eosinophils % (auto) 2.4 % (0.0-7.0); Hematocrit 36.3 % (41.0-53.0); Lymphocytes # (auto) 1.5 uL; Mean Corpuscular Hemoglobin 30.3 pg (28.0-32.0); Mean Corpuscular Hgb Conc. 33.1 g/dL (32.0-36.0); Mean Corpuscular Volume 91.6 fL (80.0-100.0); Monocytes # (auto) 0.7 uL; Monocytes % (auto) 11.7 % (0.0-12.0); Neutrophils # (auto) 3.5 uL; Nucleated Red Blood Cells % 0.1 %; Platelet Count (auto) 176 10^3/uL (140-450); Red Blood Cells 3.96 10^6/uL (4.5-5.90); Red Cell Distribution Width 14.9 % (11.8-14.3); White Blood Cell 5.9 10^3/uL (4.4-10.8)
[2019-04-18] MEDS ORDERED: LORazepam 2MG/ML-1ML VIAL IV ONE (11:45)
[2019-04-18] MEDS ORDERED: SODIUM CHLORIDE 0.9% 1,000 ML IV ONE ×2 (11:49)
[2019-04-18 11:53] LABS: INR 1.01 (0.9-1.15); Partial Thromboplastin Time 31.8 sec (23.64-32.05)
[2019-04-18] MEDS ORDERED: NOREPINEPHRINE 8 MG/250ML KIT 250 ML IV SCH (12:00)
[2019-04-18 12:01] LABS: Albumin 1.9 g/dL (3.4-5.0); BUN/Creatinine Ratio 10.1; Calcium 7.7 mg/dL (8.5-10.1); Potassium 3.3 mmol/L (3.5-5.1)
[2019-04-18 12:11] LABS: Bilirubin, Total 0.3 mg/dL (0.2-1.0); Total Protein 6.1 g/dL (6.4-8.2)
[2019-04-18] MEDS ORDERED: MORPHINE SULF INJ 2 MG/ML SYRINGE 1ML IV ONE (12:45)
[2019-04-18] MEDS ORDERED: ONDANSETRON HCL 4 MG/2 ML VIAL IV ONE (12:45)
[2019-04-18] MEDS ORDERED: ENOXAPARIN SOD 150 MG/1 ML SYRINGE SC ONE (13:30)
[2019-04-18] MEDS ORDERED: NITROGLYCERIN 0.4 MG SL TAB SL PRN (14:15)
[2019-04-18] MEDS ORDERED: ACETAMINOPHEN 500 MG TAB PO PRN (14:15)
[2019-04-18] MEDS ORDERED: ONDANSETRON HCL 4 MG/2 ML VIAL IV PRN (14:15)
[2019-04-18] MEDS ORDERED: ASPirin 81 mg TAB PO ONE (14:15)
[2019-04-18] MEDS ORDERED: DEXTROSE (50%) 50ML SYRG IV PRN (14:15)
[2019-04-18] MEDS ORDERED: MORPHINE SULF INJ 2 MG/ML SYRINGE 1ML IV PRN (14:15)
[2019-04-18 15:02] LABS: CRP High Sensitivity 3.8 mg/dL (< 0.3)
--- NOTE | 2019-04-18 17:09 | NUR ---
Patient Arrived on Unit Patient arrived on unit via stretcher. Pt unable to ambulate to bed at this time. Pt is a/ox4 with no s/s of distress or SOB. Pt is currently on 3L NC. Safety measures maintained with call light within reach, bed in lowest position, and side rails up. Will continue to monitor for changes q1hr and prn.
[2019-04-18] MEDS: ACCU-CHEK COMFORT CURVE STRIP VI SCH ×2 (17:34→21:56)
[2019-04-18] MEDS: InsuLIN REG 1unit/0.01ml Soln (100units/ml) SC SCH ×2 (17:38→21:56)
[2019-04-18] MEDS: HYDROcodone-ACET 5/325MG TAB PO PRN (17:52)
[2019-04-18 18:01] VITALS: BP 141/77
[2019-04-18 18:06] VITALS: BP 141/71
[2019-04-18] MEDS ORDERED: PNEUMOCOCCAL VACC POLYS 25 MCG/0.5 ML VIAL IM ONE (18:15)
[2019-04-18] MEDS ORDERED: INFLUENZA QUAD 2019-2020 0.5ml SYRG IM ONE (18:15)
--- NOTE | 2019-04-18 18:23 | NUR ---
MRSA NARES SENT TO LAB
--- NOTE | 2019-04-18 19:08 | NUR ---
HOSPITALIST PAGED CRITICAL TROPONIN 2.56
--- NOTE | 2019-04-18 20:01 | NUR ---
HOSPITALIST PAGED SECOND ATTEMPT REGARDING CRITICAL TROPONIN
--- NOTE | 2019-04-18 20:05 | NUR ---
HOSPITALIST RETURNS CALL SPOKE TO [facility] REGARDING PATIENT'S CRITICAL TROPONIN OF 2.560, TRENDING UP FROM 0.312. PATIENT DENIES CHEST PAIN. NEW ORDERS RECEIVED FOR LOVENOX 100MG SUBQ BID, NORMAL SALINE @1OOML/HR IV, EKG X1. ALL ORDERS READ BACK AND VERIFIED.
--- NOTE | 2019-04-18 21:41 | NUR ---
EKG COMPLETED AND PLACED IN CHART PATIENT CONTINUES TO DENY CHEST PAIN/DISCOMFORT. EKG READING IS NORMAL SINUS RHYTHM @91BPM. VITALS: BP 97/60, 02 SAT 97% ON 3LNC, RR 18 (IRREGULAR).
--- NOTE | 2019-04-18 21:51 | NUR ---
HOSPITALIST PAGED DECREASED BLOOD PRESSURE. SHORTNESS OF BREATH.
[2019-04-18] MEDS: SODIUM CHLORIDE 0.9% 1,000 ML IV SCH (21:56)
[2019-04-18] MEDS: ATORVASTATIN 20 MG TAB PO SCH (21:56)
[2019-04-18 22:00] VITALS: BP 95/59
[2019-04-19] VITALS (7 sets, daily range): BP systolic 96–126; BP diastolic 46–71
[2019-04-19] MEDS: HYDROcodone-ACET 5/325MG TAB PO PRN (03:13)
--- NOTE | 2019-04-19 04:20 | NUR ---
TOTAL LINEN CHANGE PROVIDED TO PATIENT PATIENT INCONTINENT OF URINE. PARTIAL BED BATH AND LINEN CHANGE PROVIDED. MOD-MAX ASSIST.
--- NOTE | 2019-04-19 04:30 | NUR ---
WOUND CARE PHOTOS TAKEN AT THIS TIME. PROPER FORMS PLACED IN CHART. PATIENT WITH RAW, FLAKY, RED SKIN TO ABDOMINAL FOLD/GROIN/INNER THIGHS. PATIENT PROVIDED PARTIAL BED BATH AND FUNGAL CREAM APPLIED TO AFFECTED SITE. PATIENT DENIES PAIN AT SITE.
--- NOTE | 2019-04-19 04:40 | NUR ---
URINE SAMPLE SENT TO LAB PATIENT INCONTINENT OF URINE. URINAL HELD FOR PATIENT AND PATIENT ABLE TO VOID UPON INSTRUCTION. DRIBBLING NOTED.
[2019-04-19] MEDS: ENOXAPARIN SOD 100 MG/1 ML SYRINGE SC SCH ×3 (05:03→21:54)
[2019-04-19 05:19] LABS: Urine Bacteria FEW /hpf (None Seen); Urine Blood TRACE /uL (Negative); Urine Budding Yeast LOADED /hpf (None Seen); Urine Hyaline Cast MOD /lpf (0 - 2); Urine Mucus FEW (None Seen); Urine Specific Gravity 1.017 (1.001-1.035); Urine WBC 313 /hpf (0 - 3); Urine WBC Clumps PRESENT /hpf (None Seen)
[2019-04-19 05:38] LABS: Basophils # (auto) 0.1 uL; Basophils % (auto) 1.1 % (0.0-2.0); Eosinophils # (auto) 0.2 uL; Eosinophils % (auto) 2.8 % (0.0-7.0); Hematocrit 34.2 % (41.0-53.0); Hemoglobin 11.3 g/dL (13.5-17.5); Lymphocytes # (auto) 1.5 uL; Lymphocytes % (auto) 27.5 % (10.0-50.0); Mean Corpuscular Hemoglobin 30.3 pg (28.0-32.0); Mean Corpuscular Hgb Conc. 32.9 g/dL (32.0-36.0); Mean Corpuscular Volume 91.9 fL (80.0-100.0); Monocytes # (auto) 0.6 uL; Monocytes % (auto) 11.8 % (0.0-12.0); Neutrophils # (auto) 3.1 uL; Neutrophils % (auto) 56.8 % (37.0-80.0); Nucleated Red Blood Cells % 0.1 %; Platelet Count (auto) 152 10^3/uL (140-450); Red Blood Cells 3.72 10^6/uL (4.5-5.90); Red Cell Distribution Width 15.4 % (11.8-14.3); White Blood Cell 5.5 10^3/uL (4.4-10.8)
[2019-04-19 05:53] LABS: INR 1.04 (0.9-1.15); Partial Thromboplastin Time 38.2 sec (23.64-32.05)
[2019-04-19 06:01] LABS: BUN/Creatinine Ratio 11.9; Calcium 7.6 mg/dL (8.5-10.1); Potassium 3.7 mmol/L (3.5-5.1)
[2019-04-19] MEDS: ACCU-CHEK COMFORT CURVE STRIP VI SCH ×4 (06:31→21:54)
[2019-04-19] MEDS: SODIUM CHLORIDE 0.9% 1,000 ML IV SCH ×2 (06:31→14:24)
[2019-04-19] MEDS: InsuLIN REG 1unit/0.01ml Soln (100units/ml) SC SCH ×4 (06:35→22:00)
--- NOTE | 2019-04-19 07:45 | NUR ---
Opening Shift Note Received report on the patient. Awake lying in bed. Patient shows no signs of distress at this time. Discussed plan of care with the patient. Bed is in the lowest position, side rails up x2, and the call light is within reach. Will continue to monitor.
[2019-04-19] MEDS ORDERED: ADENOSINE 122 MG in GIVE UN-DILUTED 0 ML IV STA (08:23)
--- NOTE | 2019-04-19 08:32 | NUR ---
Critical Lab Received a critical lab from [facility]. Troponin is 3.240. Paged Dr. Spence and left a message with Peg with critical value.
[2019-04-19] MEDS ORDERED: POTASSIUM CHL 20 Meq TABLET PO SCH (10:00)
[2019-04-19] MEDS ORDERED: FUROSEMIDE 40 MG TAB PO SCH (10:00)
[2019-04-19] MEDS ORDERED: FAMOTIDINE 20 MG TAB PO SCH (10:00)
--- NOTE | 2019-04-19 10:30 | NUR ---
WOUND CARE NOTE: PATIENT ADMITTED TO [facility] WITH DIAGNOSIS OF NON-STEMI. CURRENT VARGAS SCORE IS 16. PATIENT CAN SELF POSITION SELF WHEN IN BED. HE HAS INTERTRIGINOUS RASH AREAS NOTED TO GROIN, ABDOMINAL, BILATERAL INTRAGLUTEAL BUTTOCKS SKIN FOLD AREAS. SKIN IS INTACT, BRIGHT TO DARK RED. PATIENT WOULD BENEFIT FROM BID/PRN APPLICATION WITH ANTIFUNGAL CLEAR OINTMENT TO ALL INTERTRIGINOUS RASH AREAS PER MD ORDER, SKIN/WOUND CARE PLAN. NO FURTHER WOUND CARE NEEDED AT THIS TIME. Addendum: 04/19/19 at 1652 by Peggy Lr RN Amended: Links added.
[2019-04-19] MEDS: ASPirin-EC 81 mg tab PO SCH (11:53)
[2019-04-19] MEDS: CLOPIDOGREL BISULFATE 75 MG TAB PO SCH (11:53)
[2019-04-19] MEDS: SERTRALINE HCL 50 MG TAB PO SCH (11:55)
[2019-04-19] MEDS ORDERED: cefTRIAXone 1GM/50ML D5W 50 ML IV ONE (12:15)
[2019-04-19] MEDS ORDERED: LORazepam 2MG/ML-1ML VIAL IV ONE (12:45)
--- NOTE | 2019-04-19 20:10 | NUR ---
RECEIVE IN BED IS INCONTINENT OF URINE WASHED AND MADE COMFORTABLE
[2019-04-19] MEDS: ATORVASTATIN 20 MG TAB PO SCH (21:54)
[2019-04-20] VITALS (7 sets, daily range): BP systolic 119–145; BP diastolic 55–79
[2019-04-20 05:49] LABS: BUN/Creatinine Ratio 12.8; Calcium 7.7 mg/dL (8.5-10.1); Potassium 3.9 mmol/L (3.5-5.1)
[2019-04-20] MEDS: ACCU-CHEK COMFORT CURVE STRIP VI SCH ×4 (06:42→21:56)
[2019-04-20] MEDS: InsuLIN REG 1unit/0.01ml Soln (100units/ml) SC SCH ×3 (06:43→18:09)
[2019-04-20] MEDS: SODIUM CHLORIDE 0.9% 1,000 ML IV SCH (06:48)
--- NOTE | 2019-04-20 08:25 | NUR ---
Archival Records Clerk Patient went down to rn labor delivery. No signs of distress noted at this time.
[2019-04-20] MEDS ORDERED: LIDOCAINE 2%HCL (LOCAL ANESTH.) INJ 20ML MDV ONE ×2 (08:57→09:57)
[2019-04-20] MEDS ORDERED: IODIXANOL 320MG/ML 100ML BTL IV ONE ×3 (08:57→09:31)
[2019-04-20] MEDS ORDERED: ANGIOMAX 250 MG VIAL IV ONE (09:11)
[2019-04-20] MEDS ORDERED: VERAPAMIL 2.5MG/ML INJ 2ML VIAL IV ONE (09:11)
[2019-04-20] MEDS ORDERED: SODIUM CHL 0.9% 0 ML ONE (09:12)
[2019-04-20] MEDS ORDERED: MIDAZOLAM HCL 1MG/1ML-2 ML VIAL ONE ×2 (09:12→09:56)
[2019-04-20] MEDS ORDERED: fentaNYL CITRATE 100 MCG/2 ML VL ONE (09:12)
[2019-04-20] MEDS ORDERED: HEPARIN SODIUM (PORCINE) 5000 UNITS/ML 1ML VIAL ONE (09:13)
[2019-04-20] MEDS: CLOPIDOGREL BISULFATE 75 MG TAB PO SCH (10:00)
[2019-04-20] MEDS: ENOXAPARIN SOD 100 MG/1 ML SYRINGE SC SCH ×2 (10:00→21:54)
[2019-04-20] MEDS: ASPirin-EC 81 mg tab PO SCH (10:00)
[2019-04-20] MEDS: SERTRALINE HCL 50 MG TAB PO SCH (10:00)
--- NOTE | 2019-04-20 10:00 | NUR ---
PT WENT DOWN TO WELD FITTER.
[2019-04-20] MEDS ORDERED: FLUCONAZOLE 200MG/100ML 100 ML IV ONE (10:30)
[2019-04-20] MEDS ORDERED: LIDOCAINE 2% JELLY 11ml (GLYDO) UR ONE ×2 (12:15→17:30)
--- NOTE | 2019-04-20 12:19 | NUR ---
NUTRITION CONSULT/ASSESSMENT NOTES Please refer to link notes of nutrition screen form filed under the intervention section of the plan of care for further details. Est. Needs based on AdBW (113 kg): 2050 kcal to 2600 kcal (18-23 kcal/kgAdBW), 90 gms to 113 gms pro (0.8-1.0 gms/kgAdBW). Will continue to monitor pertinent labs and reassess nutrient need prn Thank you for this consult. Addendum: 04/20/19 at [address] Amended: Links added.
--- NOTE | 2019-04-20 12:40 | NUR ---
Vasc band Released 2mL of air. Patient shows no signs of distress at this time.
[2019-04-20] MEDS: cefTRIAXone 1GM/50ML D5W 50 ML IV SCH (12:42)
--- NOTE | 2019-04-20 13:00 | NUR ---
Vasc Band Released 2mL of air. Patient shows no signs of distress.
[2019-04-20] MEDS: MORPHINE SULF INJ 2 MG/ML SYRINGE 1ML IV PRN (18:10)
[2019-04-20 18:40] LABS: Urine Bacteria NONE SEEN /hpf (None Seen); Urine Blood TRACE /uL (Negative); Urine Hyaline Cast FEW /lpf (0 - 2); Urine WBC 24 /hpf (0 - 3)
[2019-04-20] MEDS: ATORVASTATIN 20 MG TAB PO SCH (21:54)
[2019-04-21] MEDS: InsuLIN REG 1unit/0.01ml Soln (100units/ml) SC SCH ×5 (00:57→22:23)
[2019-04-21 04:59] VITALS: BP 136/74
[2019-04-21 05:41] LABS: BUN/Creatinine Ratio 10.5; Calcium 7.7 mg/dL (8.5-10.1); Potassium 4.1 mmol/L (3.5-5.1)
[2019-04-21] MEDS: SODIUM CHLORIDE 0.9% 1,000 ML IV SCH ×3 (06:16→22:36)
[2019-04-21] MEDS: ACCU-CHEK COMFORT CURVE STRIP VI SCH ×4 (06:16→22:22)
[2019-04-21 08:24] VITALS: BP 144/76
[2019-04-21] MEDS: cefTRIAXone 1GM/50ML D5W 50 ML IV SCH (09:13)
[2019-04-21] MEDS: ENOXAPARIN SOD 100 MG/1 ML SYRINGE SC SCH (09:14)
[2019-04-21] MEDS: CLOPIDOGREL BISULFATE 75 MG TAB PO SCH (09:14)
[2019-04-21] MEDS: ASPirin-EC 81 mg tab PO SCH (09:14)
[2019-04-21] MEDS: SERTRALINE HCL 50 MG TAB PO SCH (09:14)
--- NOTE | 2019-04-21 10:40 | NUR ---
Patient had a bowel movement in bed. Large, soft brown stools noted. Cleaned the patient.
--- NOTE | 2019-04-21 10:40 | NUR ---
Dr. Brown at bedside.
[2019-04-21] MEDS: FLUCONAZOLE 200MG/100ML 100 ML IV SCH (10:42)
[2019-04-21] MEDS ORDERED: METOPROLOL TARTRATE 25 MG TAB PO ONE (10:45)
[2019-04-21] MEDS ORDERED: INSULIN LANTUS (GLARGINE) 1 /0.01ml (100units/ml) SC ONE (11:00)
[2019-04-21 11:41] VITALS: BP 144/76
--- NOTE | 2019-04-21 12:15 | NUR ---
Patient started having shortness of breath while walking in the room for physical therapy with KEYANA De Leon. Patient assisted back to bed, placed on O2 at 4 LPM.
--- NOTE | 2019-04-21 12:20 | NUR ---
O2 Sat = 92% on O2 at 4 LPM via nasal cannula, BP = 155/106, Heart rate = 74, RR = 21.
--- NOTE | 2019-04-21 12:40 | NUR ---
Paged Dr. Brown.
[2019-04-21 12:53] VITALS: BP 133/71
--- NOTE | 2019-04-21 13:08 | NUR ---
Patient was moaning, stated his hands are numb. Patient on the way to Radiology via bed. Dr. Brown made aware.
[2019-04-21] MEDS: MORPHINE SULF INJ 2 MG/ML SYRINGE 1ML IV PRN ×2 (13:40→17:28)
--- NOTE | 2019-04-21 13:40 | NUR ---
Morphine Sulf Inj given for severe pain as ordered.
--- NOTE | 2019-04-21 13:40 | NUR ---
BP = 100/47, Heart rate = 90, O2 Sat = 100% on O2 at 4 LPM via nasal cannula.
--- NOTE | 2019-04-21 13:56 | NUR ---
Dr. Brown at bedside. Patient complained of left arm pain. Patient already had Morphine Sulf Inj. explained to patient that he had a stroke. Dr. Brown to order transfer to [facility].
--- NOTE | 2019-04-21 14:45 | NUR ---
Report given to REBECCA Nelson that patient is waiting for [facility] bed availability. Endorsed patient to REBECCA Nelson.
--- NOTE | 2019-04-21 14:56 | NUR ---
REPORT/DR THOMPSON RECEIVED REPORT FROM BEDSIDE RN ETHYL TO ASSUME CARE OF PATIENT. PATIENT MOANING IN PAIN STATED HE IS HAVING PAIN IN HIS LEFT ARM, DR THOMPSON AT BEDSIDE STATED SHE IS GOING TO PLACE NEW ORDER FOR PAIN MEDICATION. DR THOMPSON STATED SHE SPOKE WITH PATIENTS SISTER AND UPDATED HER ON STATUS CHANGE. PENDING TRANSFER TO [facility] WHEN BED IS AVAILABLE. BED IN LOWEST POSITION SIDE RAILS UP X2, CALL LIGHT WITHIN REACH, SIDE RAILS PADDED. WILL CONTINUE TO MONITOR.
[2019-04-21] MEDS ORDERED: HYDROmorphone HCL 2 MG/ML VL IV ONE (15:00)
--- NOTE | 2019-04-21 15:45 | NUR ---
DR DRISCOLL AT BEDSIDE MD STATED HE IS GOING TO CALL PATIENTS SISTER KEVIN
--- NOTE | 2019-04-21 15:53 | NUR ---
OUTPUT [address] URINE EMPTIED FROM MONTALVO CATHETER.
--- NOTE | 2019-04-21 16:02 | NUR ---
ROUNDS PATIENT SITTING IN BED, NO DISTRESS NOTED, PATIENT STATED PAIN IS TOLERABLE AND STATED HE IS COMFORTABLE AT THIS TIME. WILL CONTINUE TO MONITOR AND INITIATE PLAN OF CARE.
--- NOTE | 2019-04-21 16:26 | NUR ---
Discharge planning per SS consult, patient has orders to dc to SNF. Referral sent to [facility], and [facility]. Acceptance and auth are pending.
--- NOTE | 2019-04-21 16:59 | NUR ---
FAMILY PATIENTS DAUGHTER SALVADOR AT BEDSIDE AND UPDATED ON PATIENT/POC. ALL QUESTIONS AND CONCERNS ADDRESSED. PATIENT SITTING IN BED, PAIN TOLERABLE AT THIS TIME. MONTALVO PATENT A DRAINING. IV SITE BENIGN. PATIENT ON BEDSIDE O2.
[2019-04-21 17:08] VITALS: BP 107/88
--- NOTE | 2019-04-21 17:19 | NUR ---
FAMILY/ACCUCHECK PATIENTS SON AT BEDSIDE AND UPDATED ON POC. PATIENTS DAUGHTER JAVIER STILL AT BEDSIDE. PATIENTS BLOOD SUGAR 303- WILL COVER PER SLIDING SCALE. PATIENT STATING HE IS IN PAIN, MOANING AND RESTLESS, PATIENT HAS PRN MORPHINE-WILL MEDICATE PER MD ORDERS.
--- NOTE | 2019-04-21 17:33 | NUR ---
SUGAR MIXER AT BEDSIDE.
--- NOTE | 2019-04-21 17:49 | NUR ---
DR EID CALLED AND IS AWARE OF PENDING CONSULT, PER MD HE WILL BE IN TO SEE PATIENT THIS EVENING.
--- NOTE | 2019-04-21 17:50 | NUR ---
FAMILY CONTACTS: DAUGHTER: JAVIER [phone] SON: DANG [phone]
--- NOTE | 2019-04-21 18:50 | NUR ---
PAIN/MD ORDERS PATIENT STATED HIS PAIN IS IN HIS LEFT WRIST AND FOREARM REGION...PATIENTS SON ASKING IF AN XRAY CAN BE ORDERED FOR PATIENT, BIOLOGICAL SCIENCES PROFESSOR HOSPITALIST THAO PAGED AND NEW ORDERS OBTAINED FOR WRIST AND FOREARM X-RAYS. PATIENT AND FAMILY UPDATED.
--- NOTE | 2019-04-21 19:20 | NUR ---
Opening Shift Note Received report and assumed care of patient. Patient is awake with family at bedside. No signs or symptoms of distress noted. Instructed patient and family on plan of care, awaiting transfer to [facility].
--- NOTE | 2019-04-21 19:22 | NUR ---
DR EID IN TO SEE PATIENT
--- NOTE | 2019-04-21 20:05 | NUR ---
[facility] Report Gave SBAR to REBECCA Martínez in [facility].
--- NOTE | 2019-04-21 20:22 | NUR ---
Transfer to [facility] Transferred patient to [facility] Room 261 at 2021.
[2019-04-21 20:30] VITALS: BP 156/134
[2019-04-21] MEDS ORDERED: LORazepam 2MG/ML-1ML VIAL IV PRN (20:30)
--- NOTE | 2019-04-21 20:30 | NUR ---
Received Pt from Tele to [facility] Pt was lying in bed, moaning. Breathing even and nonlabored, on RA, no s/s of distressed or SOB. 18G saline lock on right AC, flushed well, CDI site. Connected Pt to bedside monitor. Assessment done. Pt had an incontinent BM, small amount of pasty brown stool. Pt oriented to person, place, and year. Pt answered on and off appropriately with period of confusion. Patient given complete bath with CHG wipes. Skin integrity assessed, large intertrigo area noted at lower abdomen, abdominal fold, groins area, and both upper thigh. Antifungal cream applied. Abdalla's cath care done. Complete linens changed. Patient repositioned to prevent pressure ulcer. Bed in low position, call light within reach, all alarms are audible, fall and safety precaution in place. Instruct Pt to POC and call for help and will continue to monitor q1hr and as needed.
[2019-04-21] MEDS: HYDROcodone-ACET 5/325MG TAB PO PRN (21:02)
[2019-04-21] MEDS: ATORVASTATIN 20 MG TAB PO SCH (22:21)
[2019-04-21] MEDS: APIXABAN 2.5 MG TAB PO SCH (22:22)
[2019-04-21] MEDS: INSULIN LANTUS (GLARGINE) 1 /0.01ml (100units/ml) SC SCH (22:22)
[2019-04-21] MEDS: METOPROLOL TARTRATE 25 MG TAB PO SCH (22:32)
[2019-04-22] VITALS (7 sets, daily range): BP systolic 105–180; BP diastolic 52–86
--- NOTE | 2019-04-22 | NUR ---
Condition update Pt stopped moaning, slept on bed, v/s stable. BP checked with difficulty measure despite changing sites/ cuff. Pt has cool hands, weak radial pulses. Continue care.
--- NOTE | 2019-04-22 02:10 | NUR ---
Confusion/ pulling Pt woke up, moaning with confusion, answered not appropriate to questions, will monitor and give pain killer if needed. Pt pulled O2NC multiple times and wires, POX. Mittens put on right hand. Continue care.
--- NOTE | 2019-04-22 04:00 | NUR ---
Condition update Pt woke up, moaning with period of confusion, answered yes to all questions, not appropriately. BP high with difficulty measuring, SBP 170-190's. Pt restlessness and grimacing. will give Morphine for pain and monitor.
[2019-04-22] MEDS: MORPHINE SULF INJ 2 MG/ML SYRINGE 1ML IV PRN (04:12)
[2019-04-22] MEDS: InsuLIN REG 1unit/0.01ml Soln (100units/ml) SC SCH ×3 (07:00→17:24)
--- NOTE | 2019-04-22 07:45 | NUR ---
Opening Shift Note Assumed care of patient, patient lying on the bed, rolling his body, open his eyes, moaning, not aggressive. No S/S of distress/SOB, room air O2 saturation 96%. Instructed on POC and to call for assist PRN, patient just mumbling, didn't follow direction, will continue to monitor for changes Q1hr and PRN.
[2019-04-22] MEDS: ACCU-CHEK COMFORT CURVE STRIP VI SCH ×3 (07:47→17:24)
--- NOTE | 2019-04-22 08:30 | NUR ---
Patient still sleeping, O2 saturation 94-96% with NC 5 LPM. Will continue to monitor, will keep breakfast tray on the table, will monitor for aspiration.
[2019-04-22] MEDS: INSULIN LANTUS (GLARGINE) 1 /0.01ml (100units/ml) SC SCH (10:00)
[2019-04-22] MEDS: FLUCONAZOLE 200MG/100ML 100 ML IV SCH (10:05)
[2019-04-22] MEDS: cefTRIAXone 1GM/50ML D5W 50 ML IV SCH (10:05)
[2019-04-22] MEDS: METOPROLOL TARTRATE 25 MG TAB PO SCH ×2 (10:20→21:15)
[2019-04-22] MEDS: SERTRALINE HCL 50 MG TAB PO SCH (10:20)
[2019-04-22] MEDS: APIXABAN 2.5 MG TAB PO SCH (10:20)
[2019-04-22] MEDS ORDERED: DEXTROSE (50%) 50ML SYRG IV PRN (10:45)
--- NOTE | 2019-04-22 10:45 | NUR ---
Mouth care provided before helping with feeding patient, patient sitting up on the bed, open his eyes only when calling his name then go back to close his eyes, mild weak for both hands, both legs weakness, feeding with oak milk about 10 spoons, drink a little of water no coughing or aspiration noted. Spent around [address] Brown at the bedside, made aware, will NPO at this time, will do Swallow eval. MD talked to Dr. Springer on the phone, received new orders, will carry out and care.
--- NOTE | 2019-04-22 10:50 | NUR ---
IV insertion IV access obtained, via clean sterile technique by inserting 22 gauge catheter at left AC after 2 attempts. IV secured properly. No trauma to site. Patient tolerated procedure well.
--- NOTE | 2019-04-22 10:55 | NUR ---
Dr. Brown talked to his family on the phone. Update his condition and plan of care.
[2019-04-22] MEDS ORDERED: LABETALOL HCL 5 MG/ML ML 20ML VIAL IV PRN (11:00)
--- NOTE | 2019-04-22 11:00 | NUR ---
PT at the bedside.
--- NOTE | 2019-04-22 11:20 | NUR ---
Patient was taken with hospital bed, connected with Monitor, for Head CT.
--- NOTE | 2019-04-22 11:40 | NUR ---
Patient came back from [place], mogisela, only said no when answering the questions. continue IV hydration, NPO, O2 NC 5 LPM. Will continue to monitor and care, mouth care also provided.
--- NOTE | 2019-04-22 12:15 | NUR ---
EEG at the bedside, unable to obtain the test because patient keep moving his head and arms, staff will try again later when he is more cooperate.
--- NOTE | 2019-04-22 13:10 | NUR ---
EEG-Unable to complete electroencephalogram due to PT being restless, confused and pulling off leads. will attempt again on 04/23/2019.
--- NOTE | 2019-04-22 13:33 | NUR ---
Dr. Brown at the bedside, received order for restrict aspiration for patient, able to drink and eat if his swallowing still okay. Will continue to monitor and care. Addendum: 04/22/19 at 1335 by YARITZA GREER RN RN "Strict aspiration precaution"
--- NOTE | 2019-04-22 15:40 | NUR ---
Received a call from Dr. Brown, will resume Eliquis. Will continue to monitor and care.
--- NOTE | 2019-04-22 16:44 | NUR ---
assessment Patient is a 58 year old male who is confused. Prior to admission patient lived home with his daughter Linnette and functioned with assistance. Linnette informed me she is patients SS caregiver. Patients PCP is Dr Waters. Per Linnette patient was having chest pain and was admitted. Per Linnette she is requesting SNF for rehab on discharge. Patient has been accepted to [facility]. I informed Linnette she has a right to speak to a social media editor regarding all care. I informed Linnette she has a right to participate in any and all discharge planning. Patient does not have a POA and advanced directive. I have offered Linnette information on POA and advanced directives. I informed Linnette the advantages and benefits of having an Advanced Directive. Linnette verbalized understanding and agreed to discharge plan. Addendum: 04/22/19 at 1647 by Symone LYN Amended: Links added.
--- NOTE | 2019-04-22 17:15 | NUR ---
BS 47, 50% dextrose given as order for BS < 60, paged hospitalist to call back.
--- NOTE | 2019-04-22 17:25 | NUR ---
Received a call back from Dr. Rafiq MD made aware BS 47 and his condition, received order to D/C NS and changed to D5NSS iv 60 ml/hr. Will continue to monitor and are.
[2019-04-22] MEDS: D5W/SOD CHLO 0.9% 1,000 ML IV SCH (18:13)
--- NOTE | 2019-04-22 18:20 | NUR ---
Patient is awake, Position changed, had small BM, perineal care provided, applied Z guard cream around rectal area. Provided Dinner tray, helping with feeding patient.
--- NOTE | 2019-04-22 18:46 | NUR ---
Patient sitting up for eating, patient ate 1 cup of fruit, 25% of Dinner tray, 1 cup of ice tea, no coughing or aspiration noted.
--- NOTE | 2019-04-22 20:00 | NUR ---
SHIFT OPENING NOTE RECEIVED PATIENT AWAKE, ALERT AND ORIENTED X3. NO SOB, DISTRESS OR PAIN NOTED. ON 5L N/C POX 99%. MONTALVO CATH IN PLACE DRAINING YELLOW URINE TO GRAVITY. PHYSICAL ASSESSMENT COMPLETED, SEE INTERVENTIONS. INSTRUCTED ON POC AND TO CALL FOR ASSIST NEEDED. BED IS IN THE LOWEST POSITION WITH SIDE RAILS UP X2, CALL LIGHT IS WITHIN REACH.
[2019-04-22] MEDS: APIXABAN 5 MG TAB PO SCH (21:08)
[2019-04-22] MEDS: ATORVASTATIN 20 MG TAB PO SCH (21:08)
[2019-04-22] MEDS ORDERED: INSULIN LANTUS (GLARGINE) 1 /0.01ml (100units/ml) SC SCH (22:00)
[2019-04-22] MEDS: HYDROcodone-ACET 5/325MG TAB PO PRN (22:47)
[2019-04-23] VITALS: BP 137/42
[2019-04-23] MEDS: ACCU-CHEK COMFORT CURVE STRIP VI SCH ×5 (00:10→23:48)
--- NOTE | 2019-04-23 02:40 | NUR ---
MORNING HYGIENE CARE FULL BED BATH PERFORMED WITH CHG WIPES AND WARM SOAPY WASH CLOTHES. GOWN CHANGED. PATIENT REPOSITIONED FOR COMFORT. TOLERATED IT WELL.
[2019-04-23 04:00] VITALS: BP 123/68
[2019-04-23] MEDS: InsuLIN REG 1unit/0.01ml Soln (100units/ml) SC SCH ×5 (05:13→23:48)
--- NOTE | 2019-04-23 06:30 | NUR ---
RECEIVED PATIENT SITTING UP IN THE BED, A/O TIMES 3, O2 AT 5L BY THE N/C, SPEECH SLIGHTLY GARBLED, ABLE TO FOLLOW COMMANDS, MONTALVO TO GRAVITY, DENIES PAIN, D5.9 INFUSING INTO THE RAC AT 60ML/JR BY THE IV PUMP, Addendum: 04/23/19 at 1637 by Albertina Bejarano RN CHANGE TIME TO 0730
--- NOTE | 2019-04-23 07:00 | NUR ---
END OF SHIFT PATIENT IS QUIETLY LAYING IN BED WITH EYES CLOSED. NO SOB, DISTRESS OR PAIN NOTED. WILL GIVE REPORT AND ENDORSE CARE TO THE DAY SHIFT RN.
[2019-04-23 08:00] VITALS: BP 140/94
--- NOTE | 2019-04-23 08:40 | NUR ---
DR DRISCOLL IN TO SEE THE PATIENT, NO NEW ORDERS
--- NOTE | 2019-04-23 08:40 | NUR ---
WAS FEED HIS BREAKFAST AND TOLERATED NO PROBLEM WITH SWALLOWING
[2019-04-23] MEDS: cefTRIAXone 1GM/50ML D5W 50 ML IV SCH (08:57)
--- NOTE | 2019-04-23 09:00 | NUR ---
PATIENT TALKING ABOUT GOING DOWN THE HILL, EXPRESS TO HIM WHERE IS HE GOING STATES JUST DOWN THE HILL
[2019-04-23] MEDS: INSULIN LANTUS (GLARGINE) 1 /0.01ml (100units/ml) SC SCH (10:00)
[2019-04-23] MEDS: FLUCONAZOLE 200MG/100ML 100 ML IV SCH (10:15)
--- NOTE | 2019-04-23 10:15 | NUR ---
EXPLAIN MEDICATIONS TO THE PATIENT REGARDING THE DOSAGE, USAGE AND THE SIDE EFFECTS, VERBALIZED THEY HE WOULD TAKE THE MEDS WHICH WAS GIVEN
[2019-04-23] MEDS: METOPROLOL TARTRATE 25 MG TAB PO SCH ×2 (10:16→22:00)
[2019-04-23] MEDS: SERTRALINE HCL 50 MG TAB PO SCH (10:16)
[2019-04-23] MEDS: APIXABAN 5 MG TAB PO SCH (10:16)
[2019-04-23] MEDS: HYDROcodone-ACET 5/325MG TAB PO PRN (10:17)
--- NOTE | 2019-04-23 10:25 | NUR ---
DR THOMPSON INTO SEE THE PATIENT
--- NOTE | 2019-04-23 11:08 | NUR ---
ARTERIAL STUDY BEING DONE TO THE LEFT ARM
[2019-04-23 12:00] VITALS: BP 105/40
[2019-04-23] MEDS: D5W/SOD CHLO 0.9% 1,000 ML IV SCH ×2 (12:00→23:48)
[2019-04-23 12:01] LABS: Basophils # (auto) 0.1 uL; Basophils % (auto) 1.1 % (0.0-2.0); Eosinophils # (auto) 0.1 uL; Eosinophils % (auto) 1.4 % (0.0-7.0); Hematocrit 38.2 % (41.0-53.0); Hemoglobin 12.4 g/dL (13.5-17.5); Lymphocytes # (auto) 1.1 uL; Lymphocytes % (auto) 16.8 % (10.0-50.0); Mean Corpuscular Hemoglobin 29.5 pg (28.0-32.0); Mean Corpuscular Hgb Conc. 32.4 g/dL (32.0-36.0); Monocytes # (auto) 0.6 uL; Monocytes % (auto) 8.7 % (0.0-12.0); Neutrophils # (auto) 4.9 uL; Platelet Count (auto) 158 10^3/uL (140-450); Red Cell Distribution Width 15.3 % (11.8-14.3); White Blood Cell 6.8 10^3/uL (4.4-10.8)
--- NOTE | 2019-04-23 12:15 | NUR ---
NOTIFIED BY DR THOMPSON TO HOLD THE PATIENT'S FOOD SHE IS GOING TO TALK TO THE RADIOLOGIST ABOUT THE ARTERIAL STUDY RESULTS
[2019-04-23 12:19] LABS: Albumin 1.8 g/dL (3.4-5.0); Calcium 7.9 mg/dL (8.5-10.1); Potassium 3.9 mmol/L (3.5-5.1)
[2019-04-23 12:23] LABS: BUN/Creatinine Ratio 5.7; Bilirubin, Total 0.2 mg/dL (0.2-1.0); Total Protein 6.2 g/dL (6.4-8.2)
--- NOTE | 2019-04-23 12:35 | NUR ---
Nutrition Follow-up Notes Wt.: 144.6 kg s of yesterday. Pt's on oxygen via nasal cannula, immediate family member at bedside talking to MD during rounds this morning. Pt's no signs of distress noted earlier, currently on Consistent Standard Carb: 60 gms/meal, Cardiac: 2 gms Na, Low Chol, Low Fat diet with adequate PO intake aeb 80% ave. consumed meals (x6) in last 2.5 days. Noted pt's for active Radiology consult. Est. Needs based on AdBW (113 kg): 2050 kcal to 2600 kcal (18-23 kcal/kgAdBW), 90 gms to 113 gms pro (0.8-1.0 gms/kgAdBW). Will continue to monitor pertinent labs and reassess nutrient need prn Labs: POC Gluc 126 H; 04/21/19 Cl 115 H, Ca 7.7 L; HbA1c >14.0 H, Trop I 3.240 H; Tpro 6.1 L, Alb 1.9 L Skin: Manuel scale 13, mod risk, pt's abdominal fold rash per clinical lab specialist. Pls refer to latest extrusion die repair manager's notes for further details re: tx plans. GI: Pt had 2x BM yesterday per clinical lab specialist. PES: Altered nutrition related lab values r/t current/chronic medical condition aeb hyperglycemia, hyperchloremia, elev. Cr, Trop I, HbA1c, hypocalcemia and severe hypoalbuminemia Obesity r/t food intake more than body requirement aeb 179% IBW, BMI 43.4 kg/m2 and increased body adiposity Will continue to monitor PO intake, skin status, pertinent labs and weight trend. F/u in 3 to 5 days. Rec.: 1.) Continue close supervision during meals. 2.) If Albumin continues trending down, consider Prostat 1 pkt BID. 3.) Consider daily MVI with minerals and Asc acid 500 mgs BID. 4.) Refer pt to CDE/RD for further nutrition education and weight monitoring upon discharge. 5.) Continue current plan of care.
--- NOTE | 2019-04-23 13:25 | NUR ---
DR THOMPSON INTO TALK TO THE SON ABOUT THE PATIENT HAVING A ANGIOGRAM DUE TO BLOCKAGE IN THE LEFT ARM, VERBALIZED THAT HE UNDERSTOOD THE BENEFITS AND THE RISK ND WOULD SIGN THE CONSENTS
--- NOTE | 2019-04-23 13:36 | NUR ---
CONSENTS SIGNED BY THE SON
--- NOTE | 2019-04-23 13:40 | NUR ---
PT 1st visit, RN requested to defer PT on patient during morning PT visit. 2nd visit, RN requested to hold PT - patient will be taken down for a procedure. Addendum: 04/23/19 at 1342 by ESTELA WILKES PTT Amended: Links added.
[2019-04-23] MEDS ORDERED: IOHEXOL 350 MG/ML 100ML IJ ONE ×2 (14:03→14:39)
[2019-04-23] MEDS ORDERED: HEPARIN IN NS 1000Units/500mL 0 ML ONE (14:03)
[2019-04-23] MEDS ORDERED: LIDOCAINE 2%HCL (LOCAL ANESTH.) INJ 20ML MDV ONE (14:03)
--- NOTE | 2019-04-23 14:10 | NUR ---
PLACED 22G SALINE LOCK TO THE RT HAND 1/1 ATTEMPTS USING STERILE TECHNIQUE
--- NOTE | 2019-04-23 14:16 | NUR ---
to the [address] [facility] for left arm angiogram by the bed
[2019-04-23] MEDS ORDERED: ANGIOMAX 250 MG VIAL IV ONE ×3 (14:38→16:53)
[2019-04-23] MEDS ORDERED: SODIUM CHL 0.9% 50 ML ONE ×3 (14:39→16:53)
[2019-04-23] MEDS ORDERED: fentaNYL CITRATE 100 MCG/2 ML VL ONE (14:39)
[2019-04-23] MEDS ORDERED: MIDAZOLAM HCL 1MG/1ML-2 ML VIAL ONE (14:39)
[2019-04-23] MEDS ORDERED: CATHFLO ACTIVASE (ALTEPLASE) 2 MG VIAL IV ONE ×2 (16:15→17:00)
--- NOTE | 2019-04-23 17:19 | NUR ---
PATIENT STILL IN THE SOFTWARE ARCHITECT
[2019-04-23] MEDS ORDERED: HEPARIN DRIP/D5W 100UNITS/ML 250 ML IV ONE (17:26)
[2019-04-23] MEDS ORDERED: HEPARIN DRIP/D5W 100UNITS/ML 250 ML IV SCH (17:49)
--- NOTE | 2019-04-23 18:04 | NUR ---
RECEIVED REPORT FROM SONNY FERNANDEZ IN THE NEWS REPORTER STATES THEY REMOVED CLOTS FROM LEFT ARM THROUGH THE LEFT GROIN USING THE PNUMBA, ALSO GAVE ANGIOMAX AND STARTED ON A HEPARIN DRIP
--- NOTE | 2019-04-23 18:25 | NUR ---
Transferred from [facility] 1 to 261 by bed with cardiac monitoring. No incident during transport. Groin access site is clean with no signs of bleeding or hematoma. Safeguard dressing not secure. Dressing changed to 2x2 with tegaderm. Care endorsed to REBECCA Eng.
--- NOTE | 2019-04-23 18:35 | NUR ---
RECEIVED PATIENT BACK FROM THE [employer] [facility] [employer] [facility] BY THE BED, O2 CONNECTED AT 2L BY N/C, HEPARIN DRIP INFUSING INTO THE RT HAND AT 1200 UNITS/HR BY THE IV PUMP, BLEEDING TO THE LEFT GROIN DRESSING CHANGED, , VS [id number] 100% , MONTALVO TO GRAVITY,
--- NOTE | 2019-04-23 18:45 | NUR ---
IV STARTED IN THE LEFT LEG 22G, / ATTEMPTS USING STERILE TECHNIQUE, TRYING TO DRAW BLOOD BUT UNABLE AT THIS TIME, WILL ATTEMPT AGAIN, PULSES IN THE RT WRIST DIMINISHED FROM THE MORNING ASSESSMENT WILL CONTINUE TO MONITOR , WILL CONTINUE TO MONITOR AND PEST CONTROLLER ASSISTANT REPORT TO THE NEXT SHIFT
--- NOTE | 2019-04-23 19:45 | NUR ---
SHIFT OPENING NOTE RECEIVED PATIENT SUPINE AND SLEEPING. PATIENT JUST CAME BACK FROM [facility] AND IS VERY SLEEPY DUE TO THE SEDATION. HARD TO WAKE UP. PUPILS ARE +1 AND SLUGGISH. HEPARIN INFUSING AT 1200 UNITS AN HOUR FROM RIGHT HAND 22 G IV. PATIENT IS LAYING SUPINE UNTIL 2029. LEFT GROIN DRESSING HAS A SMALL AMOUNT OF BLOOD ON IT. NO HEMATOMA OR ACTIVE BLEEDING NOTED. PULSE TO LOWER EXTREMITY WNL. MONTALVO CATH DRAINING YELLOW URINE TO GRAVITY. PHYSICAL ASSESSMENT COMPLETED, SEE INTERVENTIONS. WILL CLOSELY MONITOR.
[2019-04-23 20:00] VITALS: BP 143/44
--- NOTE | 2019-04-23 20:35 | NUR ---
DR. EID AT BEDSIDE ASSESSING PATIENT
[2019-04-23] MEDS ORDERED: APIXABAN 5 MG TAB PO SCH (22:00)
[2019-04-23] MEDS: ATORVASTATIN 20 MG TAB PO SCH (22:00)
[2019-04-23 22:01] LABS: Basophils # (auto) 0.1 uL; Basophils % (auto) 0.8 % (0.0-2.0); Eosinophils # (auto) 0.1 uL; Hematocrit 31.6 % (41.0-53.0); Hemoglobin 10.5 g/dL (13.5-17.5); Lymphocytes # (auto) 0.9 uL; Lymphocytes % (auto) 10.1 % (10.0-50.0); Mean Corpuscular Hemoglobin 29.8 pg (28.0-32.0); Mean Corpuscular Hgb Conc. 33.2 g/dL (32.0-36.0); Mean Corpuscular Volume 89.8 fL (80.0-100.0); Monocytes # (auto) 0.7 uL; Monocytes % (auto) 7.7 % (0.0-12.0); Neutrophils % (auto) 80.4 % (37.0-80.0); Nucleated Red Blood Cells % 0.3 %; Platelet Count (auto) 145 10^3/uL (140-450); Red Blood Cells 3.52 10^6/uL (4.5-5.90); White Blood Cell 8.7 10^3/uL (4.4-10.8)
[2019-04-23 22:24] LABS: INR 1.67 (0.9-1.15)
[2019-04-23 22:26] LABS: Partial Thromboplastin Time > 139.0 sec (23.64-32.05)
--- NOTE | 2019-04-23 22:40 | NUR ---
HEPARIN DRIP APTT >139, PER PROTOCOL WILL HOLD INFUSION FOR 1 HOUR, THEN DECREASE DRIP BY 3ML/H. NEW RATE 9 ML/H, 900 UNITS/H.
[2019-04-24] VITALS: BP 146/60
--- NOTE | 2019-04-24 02:00 | NUR ---
MORNING HYGIENE CARE FULL BED BATH PERFORMED USING CHG WIPES. MONTALVO CARE DONE. FULL LINEN CHANGE, GOWN CHANGED. PATIENT REPOSITIONED FOR COMFORT. TOLERATED IT WELL.
[2019-04-24 03:30] VITALS: BP 145/40
[2019-04-24] MEDS: ACCU-CHEK COMFORT CURVE STRIP VI SCH ×4 (05:37→23:36)
[2019-04-24] MEDS: InsuLIN REG 1unit/0.01ml Soln (100units/ml) SC SCH ×4 (05:38→23:36)
[2019-04-24 05:39] LABS: INR 1.27 (0.9-1.15)
--- NOTE | 2019-04-24 05:40 | NUR ---
HEPARIN DRIP APTT IS 62.0, NO CHANGE PER PROTOCOL. WILL REMAIN AT 9 ML/H OR 900 UNITS/H.
--- NOTE | 2019-04-24 07:29 | NUR ---
END OF SHIFT REPORT GIVEN AND CARE ENDORSED TO EVANGELIST FERNANDEZ.
--- NOTE | 2019-04-24 07:30 | NUR ---
RECEIVED PATIENT SEMI FOWLERS IN BED, , NON RESPONSIVE EXCEPT TO PAIN, O2 AT 2L BY N/C, MONTALVO TO GRAVITY, HEPARIN INFUSING INTO THE RT WRIST AT 9ML/HR BY THE IV PUMP, SALINE LOCK TO THE LEFT LEG INFILTRATED,
[2019-04-24 08:00] VITALS: BP 194/45
--- NOTE | 2019-04-24 08:30 | NUR ---
SALINE LOCK REMOVED FROM THE LEFT LEG AND PLACED 22G TO THE RT LEG, 1/1 ATTEMPTS USING STERILE TECHNIQUE
--- NOTE | 2019-04-24 08:40 | NUR ---
INFORMED DR BOYD OF THE CHANGE IN STATUS AND STATED TO GET A CT OF THE HEAD DONE
--- NOTE | 2019-04-24 09:00 | NUR ---
CT OF THE HEAD BEING DONE
--- NOTE | 2019-04-24 09:15 | NUR ---
NOTIFIED THE FAMILY THAT THE PATIENT'S MENTAL STATUS HAS CHANGED AND TO COME TO THE HOSPITAL
--- NOTE | 2019-04-24 09:25 | NUR ---
BACK FROM THE CT SCAN WHICH THE PATIENT TOLERATED
--- NOTE | 2019-04-24 09:35 | NUR ---
CALLED FROM THE RADIOLOGIST DR DURAN AND STATED THAT THE PATIENT HAD A NEW INFARCT IN THE RT CEREBRAL HEMISPHERE
[2019-04-24] MEDS: METOPROLOL TARTRATE 25 MG TAB PO SCH ×2 (10:00→20:26)
[2019-04-24] MEDS: SERTRALINE HCL 50 MG TAB PO SCH (10:00)
[2019-04-24] MEDS: INSULIN LANTUS (GLARGINE) 1 /0.01ml (100units/ml) SC SCH (10:00)
--- NOTE | 2019-04-24 10:05 | NUR ---
DR BOYD TALKING TO THE FAMILY REGARDING THE RESULTS OF THE CT OF THE HEAD AND HIS RECOMMENDATIONS AND IF THEY WANT THE PATIENT TO BE INTUBATED IF IT COMES TO THAT POINT, THE FAMILY STATES THEY WILL DISCUSS WHAT THEY WANT TO DO AND LET US KNOW
[2019-04-24] MEDS: FLUCONAZOLE 200MG/100ML 100 ML IV SCH (10:33)
[2019-04-24] MEDS: cefTRIAXone 1GM/50ML D5W 50 ML IV SCH (10:33)
--- NOTE | 2019-04-24 10:33 | NUR ---
AM MEDS EXPLAINED TO THE PATIENT AND FAMILY AND GIVEN A ORDERED
[2019-04-24 10:40] LABS: Basophils # (auto) 0 uL; Basophils % (auto) 0.5 % (0.0-2.0); Eosinophils # (auto) 0 uL; Eosinophils % (auto) 0.5 % (0.0-7.0); Hemoglobin 10.6 g/dL (13.5-17.5); Lymphocytes % (auto) 13.9 % (10.0-50.0); Mean Corpuscular Hemoglobin 30.2 pg (28.0-32.0); Mean Corpuscular Volume 91.5 fL (80.0-100.0); Monocytes # (auto) 0.5 uL; Monocytes % (auto) 6.8 % (0.0-12.0); Neutrophils # (auto) 5.8 uL; Neutrophils % (auto) 78.3 % (37.0-80.0); Nucleated Red Blood Cells % 0.1 %; Platelet Count (auto) 138 10^3/uL (140-450); Red Cell Distribution Width 15.5 % (11.8-14.3); White Blood Cell 7.4 10^3/uL (4.4-10.8)
[2019-04-24 10:47] LABS: Albumin 1.7 g/dL (3.4-5.0); Calcium 7.5 mg/dL (8.5-10.1); Potassium 3.8 mmol/L (3.5-5.1)
[2019-04-24 10:50] LABS: BUN/Creatinine Ratio 8.4; Bilirubin, Total 0.2 mg/dL (0.2-1.0); Total Protein 5.2 g/dL (6.4-8.2)
--- NOTE | 2019-04-24 11:40 | NUR ---
DR EID INTO SEE THE PATIENT AND TELLING THEM THE RESULTS OF THE CT OF THE HEAD AND WHAT HE RECOMMENDS
[2019-04-24 11:55] VITALS: BP 137/62
--- NOTE | 2019-04-24 12:00 | NUR ---
HEPARIN DRIP AND ELIQUIS STOPPED PER DR EID
[2019-04-24] MEDS: SODIUM CHLORIDE 0.9% 1,000 ML IV SCH (12:07)
[2019-04-24 12:12] LABS: INR 1.3 (0.9-1.15); Partial Thromboplastin Time 55.1 sec (23.64-32.05)
--- NOTE | 2019-04-24 12:25 | NUR ---
EEG BEING DONE
--- NOTE | 2019-04-24 12:45 | NUR ---
EEG COMPLETED AT BESIDE. RN EVANGELIST AWARE.
--- NOTE | 2019-04-24 12:46 | NUR ---
PT RN requested to defer PT for patient during visit. Addendum: 04/24/19 at 1247 by ESTELA WILKES PTT Amended: Links added.
--- NOTE | 2019-04-24 13:00 | NUR ---
FAMILY COMING TO SEE THE PATIENT ON AND OFF
--- NOTE | 2019-04-24 14:30 | NUR ---
DR BOYD IN TALKING TO THE PATIENT'S FAMILY ABOUT THE PATIENT BEING INTUBATED, AND THE FAMILY HAVE NOT DECIDED IF THEY WANT HIM INTUBATED, DR RUIZ ALSO SPOKE TO DR EID REGARDING THE RESULTS OF THE EEG
--- NOTE | 2019-04-24 15:50 | NUR ---
DR BOYD IN TO TALK WITH THE FAMILY AND THEY HAVE DECIDED TO MAKE THE PATIENT DNR ALL FORMS SIGNED AND TO SEE IF WE CAN FIND PLACEMENT AND PUT HIM ON HOSPICE
[2019-04-24 16:00] VITALS: BP 109/76
--- NOTE | 2019-04-24 16:00 | NUR ---
CANCELLED CONSULT WITH DR AGUILAR PATIENT MAKE DNR AND DR AGUILAR WAS BEING CONSULTED FOR INTUBATION
--- NOTE | 2019-04-24 16:10 | NUR ---
PAPER WORK FAXED TO [facility]
--- NOTE | 2019-04-24 16:30 | NUR ---
JULI THE SON TALKED TO [facility] ON THE PHONE
--- NOTE | 2019-04-24 17:30 | NUR ---
FAMILY AND FRIENDS LEFT NO CHANGE IN THE PATIENTS CONDITION, REMAINS NON RESPONSIVE, EXCEPT TO PAIN
--- NOTE | 2019-04-24 18:30 | NUR ---
NO CHANGE IN PATIENTS CONDITION, STILL NON RESPONSIVE, MOVES TO PAINFUL STIMULI, ON O2 AT 2L , O2 SAT IN THE 95%, DNR, MONTALVO TO GRAVITY, NS INFUSING INTO THE RT WRIST AT 50ML/HR BY THE IV PUMP, SALINE LOCK 22G TO THE RT LEG FLUSHED AND PATENT, SCD'S TO LYLA LEGS, NO CALL FROM [facility], WILL CONTINUE TO MONITOR AND GIVE REPORT TO THE NEXT SHIT
[2019-04-24 20:00] VITALS: BP 101/53
--- NOTE | 2019-04-24 20:00 | NUR ---
SHIFT OPENING NOTE RECEIVED PATIENT LAYING IN BED SLEEPING.UNABLE TO WAKE UP. PUPILS ARE 3 FIXED. ON 4L N/C. POX 95%. MONTALVO CATH DRAINING YELLOW URINE TO GRAVITY. MADE A DNR TODAY. PHYSICAL ASSESSMENT COMPLETED, SEE INTERVENTIONS. WILL CLOSELY MONITOR.
[2019-04-24] MEDS: ATORVASTATIN 20 MG TAB PO SCH (20:25)
[2019-04-25] VITALS: BP 125/36
--- NOTE | 2019-04-25 02:20 | NUR ---
MORNING HYGIENE CARE FULL BED BATH PERFORMED USING CHG WIPES. GOWN CHANGED. FULL LINEN CHANGED. PATIENT REPOSITIONED FOR COMFORT. TOLERATED IT WELL.
[2019-04-25 04:00] VITALS: BP 129/79
[2019-04-25 05:18] LABS: Basophils # (auto) 0 uL; Basophils % (auto) 0.5 % (0.0-2.0); Eosinophils # (auto) 0 uL; Eosinophils % (auto) 0.1 % (0.0-7.0); Hematocrit 28.5 % (41.0-53.0); Hemoglobin 9.5 g/dL (13.5-17.5); Lymphocytes # (auto) 1.2 uL; Mean Corpuscular Hemoglobin 30.4 pg (28.0-32.0); Mean Corpuscular Hgb Conc. 33.3 g/dL (32.0-36.0); Mean Corpuscular Volume 91.1 fL (80.0-100.0); Monocytes # (auto) 0.7 uL; Monocytes % (auto) 8.4 % (0.0-12.0); Neutrophils # (auto) 6.6 uL; Platelet Count (auto) 179 10^3/uL (140-450); Red Blood Cells 3.12 10^6/uL (4.5-5.90); Red Cell Distribution Width 15.2 % (11.8-14.3); White Blood Cell 8.5 10^3/uL (4.4-10.8)
[2019-04-25] MEDS: ACCU-CHEK COMFORT CURVE STRIP VI SCH ×3 (05:33→19:05)
[2019-04-25] MEDS: InsuLIN REG 1unit/0.01ml Soln (100units/ml) SC SCH ×3 (05:33→19:05)
[2019-04-25 05:35] LABS: INR 1.3 (0.9-1.15); Partial Thromboplastin Time 40.4 sec (23.64-32.05)
[2019-04-25 05:48] LABS: Calcium 7.7 mg/dL (8.5-10.1); Potassium 3.8 mmol/L (3.5-5.1)
[2019-04-25 05:52] LABS: Albumin 1.6 g/dL (3.4-5.0); BUN/Creatinine Ratio 7.9
[2019-04-25 05:55] LABS: Bilirubin, Total 0.3 mg/dL (0.2-1.0); Total Protein 5.7 g/dL (6.4-8.2)
--- NOTE | 2019-04-25 07:20 | NUR ---
END OF SHIFT PATIENT IS QUIETLY LAYING IN BED WITH EYES CLOSED. NO CHANGES IN STATUS. REPORT GIVEN AND CARE ENDORSED TO MADISON FERNANDEZ.
--- NOTE | 2019-04-25 07:50 | NUR ---
Opening Shift Note Assumed care of patient, sleeping, opened his eyes only pain stimulation. No S/S of distress/SOB or pain noted. Instructed on POC while providing care, will continue to monitor for changes Q1hr and PRN. Mouth care provided, applied with Lip care. Will NPO at this time, strict aspiration precaution.
[2019-04-25 08:00] VITALS: BP 129/40
[2019-04-25] MEDS: SODIUM CHLORIDE 0.9% 1,000 ML IV SCH (08:56)
[2019-04-25] MEDS: cefTRIAXone 1GM/50ML D5W 50 ML IV SCH (09:01)
[2019-04-25] MEDS: METOPROLOL TARTRATE 25 MG TAB PO SCH ×2 (09:01→22:00)
[2019-04-25] MEDS: FLUCONAZOLE 200MG/100ML 100 ML IV SCH (09:01)
[2019-04-25] MEDS: SERTRALINE HCL 50 MG TAB PO SCH (09:02)
[2019-04-25] MEDS: INSULIN LANTUS (GLARGINE) 1 /0.01ml (100units/ml) SC SCH (09:02)
--- NOTE | 2019-04-25 09:07 | NUR ---
PT AT THE BEDSIDE.
--- NOTE | 2019-04-25 10:20 | NUR ---
Dr. Hale at the bedside, seen patient at this time, received order for transfer to [facility] sup made aware, will call and give a report to Will, patient planed to transfer to room 216.
--- NOTE | 2019-04-25 11:05 | NUR ---
ZAIRA pt transferred to floor JONATHON OGLESBY JR Bennie transferred to 216 via hospital bed and portable 02. All patient medications and personal belongings transferred with patient to receiving floor. Patient care transferred to Will RN. Called Mariana (daughter) and his sister regarding to transfer, nobody picked up the phone.
[2019-04-25 12:30] VITALS: BP 152/60
--- NOTE | 2019-04-25 14:35 | NUR ---
Discharge planning per SS consult, patient has a consult for hospice. Referral sent to [facility]. Hospice rep will come to evaluate patient Fri or Friday.
--- NOTE | 2019-04-25 16:00 | NUR ---
BRYCE FROM [facility] AT BEDSIDE.
[2019-04-25 17:00] VITALS: BP 159/75
--- NOTE | 2019-04-25 19:20 | NUR ---
SHIFT OPENING NOTE Received report from eva Alvarado RN. Patient is laying in bed supine with eyes closed and pupils fixed, head elevated 30 degree. Family at bedside. Patient is unresponsive on 4LNC saturating at 96%. Abdalla catheter draining yellow urine to gravity. Patient is DNR. Repositioned patient to left side with pillows and off loaded heels with pillows. Bed placed in lowest position, bed alarm tuned on and call light within reach.
--- NOTE | 2019-04-25 19:32 | NUR ---
MIDLINE SPOKE WITH PRIMARY RN TO CLARIFY IF PATIENT NEEDED A MIDLINE AT THIS TIME. STATES PT HAS IV ACCESS AND MIDLINE IS NOT NEEDED AT THIS TIME. ADVISED NURSE TO PLACE A NEW ORDER IF MIDLINE IS NEEDED, VERBALIZES UNDERSTANDING.
[2019-04-25 21:00] VITALS: BP 132/72
[2019-04-25] MEDS: ATORVASTATIN 20 MG TAB PO SCH (22:00)
--- NOTE | 2019-04-26 | NUR ---
ROUNDS REPOSITIONED PATIENT TO LEFT SIDE USING PILLOWS AND OFFLOADED HEELS. PATIENT IS STILL UNRESPONSIVE RESTING IN BED WITH EYES CLOSED. NO DISTRESS NOTED SATURATING AT 96% AT 4LNC.
[2019-04-26 04:30] VITALS: BP 139/66
[2019-04-26] MEDS: SODIUM CHLORIDE 0.9% 1,000 ML IV SCH (05:27)
[2019-04-26] MEDS: ACCU-CHEK COMFORT CURVE STRIP VI SCH ×3 (06:18→12:00)
[2019-04-26] MEDS: InsuLIN REG 1unit/0.01ml Soln (100units/ml) SC SCH ×3 (06:19→12:00)
[2019-04-26 08:00] VITALS: BP 160/57
--- NOTE | 2019-04-26 08:15 | NUR ---
ON INITIAL ASSESSMENT FOUND FAMILY GATHERS AROUND PT PRAYING. PRESENT ARE SISTER, YOUNGEST SON,HIS MOTHER-IN LAW AND NIECE. HELD HANDS WITH YOUNGEST SON AND SISTER DURING PRAYER. DISCUSSION STARTED WITH THEIR UNDERSTANDING OF PT CONDITION. ANSWERED QUESTIONS RE: POC. PROSPECTS OF HOSPICE AND HOW THAT WORKS. EXPLAINED REFLEXES VS PURPOSEFUL MOVEMENTS. POSITIVE BABINSKI. DECEREBRATE POSTURING NOTED. RIGHT EYE FIXED TO THE RIGHT. LEFT EYE MOVEMENT NOTED TO ROLL SIDE TO SIDE CONTINUALLY. YAWNS DURING ASSESSMENT. SALIVA FROTHY IN MOUTH, SUCTIONED. PRIMAL REFLEXES NOTED DURING SUCTIONING. ENCOURAGEMENT GIVEN TO FAMILY. THEY STATE THAT THE PATIENTS WISHES WERE TO NEVER BE INTUBATED AND THEY ARE HONORING HIS WISHES.
[2019-04-26] MEDS: cefTRIAXone 1GM/50ML D5W 50 ML IV SCH (09:00)
[2019-04-26] MEDS: FLUCONAZOLE 200MG/100ML 100 ML IV SCH (10:00)
--- NOTE | 2019-04-26 10:27 | NUR ---
PT RN requested to defer PT treatment for today. Addendum: 04/26/19 at 1028 by ESTELA WILKES PTT Amended: Links added.
--- NOTE | 2019-04-26 11:40 | NUR ---
[facility] CONTACTED. ADVISED THAT STATUS OF NON VENTILATED PT IS FOR HOSPICE TO CONTACT THEM AT TIME OF CARDIAC .
[2019-04-26 12:00] VITALS: BP 153/47
--- NOTE | 2019-04-26 12:08 | NUR ---
ROUNDS. ASKS FAMILY RETURN TO SPEAK WITH THEM. SON MENG CALLED. STATES ON HIS WAY IN.
[2019-04-26 16:00] VITALS: BP 168/88
--- NOTE | 2019-04-26 16:29 | NUR ---
DR. EID ROUNDS UPDATE GIVEN.
--- NOTE | 2019-04-26 19:18 | NUR ---
Opening Shift Note Assumed care of patient unresponsive. Labored breathing. Elevated head of bed with 02 at 3.5 LPM via nasal cannula. O2 saturation at 94% at this time. Patient closes lips when this Nurse attempts to suction mouth. Will continue to monitor for changes Q1hr and PRN. Side rails up x2. Bed locked in lowest position. Call light within reach. Bed alarm on for safety. Patient is a DNR.
[2019-04-26 21:00] VITALS: BP 150/79
[2019-04-26] MEDS: ATORVASTATIN 20 MG TAB PO SCH (22:00)
--- NOTE | 2019-04-27 00:16 | NUR ---
Rounds Repositioned and suctioned patients mouth. Patient closes lips when attempting to suction mouth. Will continue to monitor patient Q1H PRN.
[2019-04-27] MEDS: SODIUM CHLORIDE 0.9% 1,000 ML IV SCH (01:06)
[2019-04-27 04:30] VITALS: BP 161/79
[2019-04-27] MEDS: ACCU-CHEK COMFORT CURVE STRIP VI SCH ×2 (06:37)
[2019-04-27] MEDS: InsuLIN REG 1unit/0.01ml Soln (100units/ml) SC SCH ×2 (06:37)
--- NOTE | 2019-04-27 07:30 | NUR ---
Opening Shift Note Assumed care of patient. Patient noted to be tachypnic, is on 4 liters of O2 NC sating in the mid 90's. Pt. is unresponsive and nonverbal. Bilateral upper and lower extremities uploaded on pillows. Antifungal cream applied to reddened areas. Mouth care performed and suctioned at this time. Will continue to monitor for changes Q1hr & PRN.
--- NOTE | 2019-04-27 07:44 | NUR ---
Endorsed care to day shift RN.
[2019-04-27 08:00] VITALS: BP 190/77
[2019-04-27 08:30] VITALS: BP 190/77
--- NOTE | 2019-04-27 08:30 | NUR ---
Neurologist at bedside MD Springer at bedside. Aware of patient status. No new orders received at this time. Will cont to monitor patient.
[2019-04-27] MEDS ORDERED: ASPirin 81 mg TAB PO SCH (10:00)
--- NOTE | 2019-04-27 10:15 | NUR ---
PT REBECCA Jarquin requested to defer PT for patient during visit. Addendum: 04/27/19 at 1016 by ESTELA WILKES PTT Amended: Links added.
[2019-04-27] MEDS: cefTRIAXone 1GM/50ML D5W 50 ML IV SCH (10:42)
[2019-04-27] MEDS: FLUCONAZOLE 200MG/100ML 100 ML IV SCH (10:42)
[2019-04-27] MEDS ORDERED: ACETAMINOPHEN 650 MG RECT SUPP PR ONE (11:45)
--- NOTE | 2019-04-27 11:45 | NUR ---
Increase Temp Patient temp increase to 101.0. MD Rodríguez made aware. New orders for Acetaminophen suppository and cooling measure received. Cooling measure performed as ordered and reassessment of temp is 100.0. Per MD no need for suppository at this time. Will cont to monitor patient.
[2019-04-27 12:00] VITALS: BP 151/96
--- NOTE | 2019-04-27 14:15 | NUR ---
Hospitalist at bedside . Marcos at bedside. Md aware of patient status. MD spoke to patient's son Epifanio extensively about patients status and POC. MD answered all of Epifanio's questions and Epifanio understood and agreed to POC and DC planning to hospice facility. New orders received. Will carry out new orders and will cont to monitor patient.
[2019-04-27 16:58] VITALS: BP 154/68
--- NOTE | 2019-04-27 19:17 | NUR ---
Patient care endorsed endorsed care to Myles stevenson. No change in status noted at this time. Patient is still tachypneic. HR 95. Patient on 4L n/c sats in the 90's. Abdalla catheter patent, draining to gravity.
--- NOTE | 2019-04-27 19:30 | NUR ---
Opening Shift Note Assumed care of patient. Patient is unresponsive with family at bedside. Abdalla catheter intact, patent, draining to gravity with no s/s of pain or discomfort. No S/S of distress/SOB. Instructed family on POC will continue to monitor for changes. Bed locked in lowest position and bed rails up x3. Call light within reach.
[2019-04-27 22:00] VITALS: BP 151/73
[2019-04-27] MEDS: ATORVASTATIN 20 MG TAB PO SCH (22:00)
--- NOTE | 2019-04-28 | NUR ---
Temperature elevated at 100.3. Cooling measures initiated.
--- NOTE | 2019-04-28 00:20 | NUR ---
Reassessment of temperature at 98.2. No further interventions needed and will continue to monitor for changes
[2019-04-28 05:00] VITALS: BP 157/82
--- NOTE | 2019-04-28 05:30 | NUR ---
Complete linen changed
--- NOTE | 2019-04-28 07:30 | NUR ---
Opening Shift Note Assumed care of patient. Patient unresponsive, labored breathing, tachypneic, and on 4 liters O2 NC. Will continue to monitor for changes Q1hr and PRN. Safety precautions in place per fall risk protocol. Aspiration precautions in place. Pressure areas lifted on pillows.
[2019-04-28 09:00] VITALS: BP 149/76
--- NOTE | 2019-04-28 09:34 | NUR ---
Transport regarding Hospice Received call from Sunita with [facility]. Patient will be picked up around noon to be transported by [facility] Phone number [phone] to [facility]. Per Sunita, she can be reached at this number [phone] or cell [phone]. Per Sunita, she will speak to family and notify them of transport.
--- NOTE | 2019-04-28 10:28 | NUR ---
Received call from [facility] Per Sunita with [facility], patient still schedule for transport between [phone]. Per Sunita she spoke to Epifanio, patient's son, and notified him of transfer and orange picker machine operator time. Awaiting transport at this time.
--- NOTE | 2019-04-28 12:48 | NUR ---
Discharge instructions given as ordered to patient's son, Epifanio over the phone. Epifanio informed by this RN to follow up with [facility] MD. All questions and concerns addressed. Patient's son, Epifanio verbalized understanding. IV's removed with catheters intact, pressure dressings applied. Abdalla in place as ordered. Wound photos taken. Patient transported to [facility] via gurney with all personal belongings, accompanied by [facility] personnel. Patient was transported with 4L O2 NC. No change in status at this time.
== END 2019-04-28 13:11 | disposition hospice, home (50) | DRG 252 ==
LOC: EDBD 10:50 → ER 10:50 → TELE 10:51 → TELE-EAST 17:21 → TELE-WESTW 17:27 → DOU IN ICU 04-21 20:27 → TELE-CENTR 04-25 11:18 → CENTRAL 04-25 23:57
PROVIDERS: ADMIT Nurse Practitioner Acute Care; ATTEND Internal Medicine
PROC: 4A023N7 Measurement of Cardiac Sampling and Pressure, Left Heart, Percutaneous Approach (ICD-10-PCS; 2019-04-20)
PROC: B211YZZ Fluoroscopy of Multiple Coronary Arteries using Other Contrast (ICD-10-PCS; 2019-04-20)
PROC: B215YZZ Fluoroscopy of Left Heart using Other Contrast (ICD-10-PCS; 2019-04-20)
PROC: 0T9B70Z Drainage of Bladder with Drainage Device, Via Natural or Artificial Opening (ICD-10-PCS; 2019-04-20)
PROC: 03C63ZZ Extirpation of Matter from Left Axillary Artery, Percutaneous Approach (ICD-10-PCS; principal; 2019-04-26)
PROC: 03C83ZZ Extirpation of Matter from Left Brachial Artery, Percutaneous Approach (ICD-10-PCS; 2019-04-26)
PROC: B3101ZZ Fluoroscopy of Thoracic Aorta using Low Osmolar Contrast (ICD-10-PCS; 2019-04-26)
PROC: B3141ZZ Fluoroscopy of Left Common Carotid Artery using Low Osmolar Contrast (ICD-10-PCS; 2019-04-26)
PROC: 3E05317 Introduction of Other Thrombolytic into Peripheral Artery, Percutaneous Approach (ICD-10-PCS; 2019-04-26)
DX: I21.4 Non-ST elevation (NSTEMI) myocardial infarction (principal); I63.511 Cerebral infarction due to unspecified occlusion or stenosis of right middle cerebral artery; N17.0 Acute kidney failure with tubular necrosis; E11.10 Type 2 diabetes mellitus with ketoacidosis without coma; E43 Unspecified severe protein-calorie malnutrition; I13.0 Hypertensive heart and chronic kidney disease with heart failure and stage 1 through stage 4 chronic kidney disease, or unspecified chronic kidney disease; Z68.41 Body mass index [BMI] 40.0-44.9, adult; G81.94 Hemiplegia, unspecified affecting left nondominant side; N13.8 Other obstructive and reflux uropathy; G93.49 Other encephalopathy; N39.0 Urinary tract infection, site not specified; E87.1 Hypo-osmolality and hyponatremia; I25.10 Atherosclerotic heart disease of native coronary artery without angina pectoris; N18.3 Chronic kidney disease, stage 3 (moderate); E11.22 Type 2 diabetes mellitus with diabetic chronic kidney disease; E11.319 Type 2 diabetes mellitus with unspecified diabetic retinopathy without macular edema; E11.51 Type 2 diabetes mellitus with diabetic peripheral angiopathy without gangrene; E87.6 Hypokalemia; D64.9 Anemia, unspecified; E66.01 Morbid (severe) obesity due to excess calories; I50.9 Heart failure, unspecified; I95.0 Idiopathic hypotension; N47.1 Phimosis; Z66 Do not resuscitate; E86.0 Dehydration; E78.5 Hyperlipidemia, unspecified; R09.02 Hypoxemia; I48.0 Paroxysmal atrial fibrillation; E11.621 Type 2 diabetes mellitus with foot ulcer; F32.9 Major depressive disorder, single episode, unspecified; I65.23 Occlusion and stenosis of bilateral carotid arteries; K57.30 Diverticulosis of large intestine without perforation or abscess without bleeding; Z51.5 Encounter for palliative care; Z79.01 Long term (current) use of anticoagulants; Z79.02 Long term (current) use of antithrombotics/antiplatelets; Z79.82 Long term (current) use of aspirin; Z79.899 Other long term (current) drug therapy; Z80.0 Family history of malignant neoplasm of digestive organs; Z82.49 Family history of ischemic heart disease and other diseases of the circulatory system; Z79.4 Long term (current) use of insulin; Z83.3 Family history of diabetes mellitus; Z85.038 Personal history of other malignant neoplasm of large intestine; Z86.73 Personal history of transient ischemic attack (TIA), and cerebral infarction without residual deficits; Z91.19 Patient's noncompliance with other medical treatment and regimen
CPT/HCPCS: 36415; 36600; 70450; 71045; 71250; 73090; 73110; 74176; 75605; 76499; 76775; 76942; 78452; 80048; 80053; 80061; 81001; 82565; 82805; 82962; 83036; 84484; 85025; 85610; 85730; 86141; 87081; 87086; 87088; 93005; 93017; 93458; 93886; 93930; 93970; 95819; 96361; 96374; 96375; 97110; 97163; 99152; 99153; 99291; G0378; J0153; J0696; J1450; J1815; J2250; J2405; J7042; Q9967